=== PATIENT | female | born 1965 | race Caucasian/White ===

== ENCOUNTER → 2017-03-29 | Outpatient (CLI) | payer BC ==
[2017-03-29 13:37] VITALS: BP 161/76; PULSE 80; RESP 16; TEMP 99; BMI 36.0
--- NOTE | 2017-03-29 14:16 | P.HPBAR ---
Bariatric H&P - History & Physicial H&P Date: 03/29/17 History & Physicial: Visit/CC: Band Adj Patient initial contact: Initial weight: 110.762 kg Initial weight in pounds: 244.00 Height: 5 ft 9 in Initial BMI: 36.0 Last weight: Current weight: 110.762 kg Current weight in pounds: 244.00 Current BMI: 36.0 [place] body weight (based on NIH guidelines): 65.771 kg Excess body weight loss: 0.0% The patient is a 51 year-old F who presents for Bariatric Assessment. Patient' s complaints of hunger. She is wishing to have a lap band adjustment. She's not been seen in several years. Her original band was sounded 2007. Past Medical History Past Medical History: Deep Vein Thrombosis (DVT) History of Any Multi-Drug Resistant Organisms: None Reported Past Surgical History: Bariatric Surgery, Cholecystectomy Additional Past Surgical History / Comment(s): lap band 2007 Past Anesthesia/Blood Transfusion Reactions: No Reported Reaction Smoking Status: Former smoker Surgical - Exam Vital Signs Temp Pulse Resp BP 99.0 F 80 16 161/76 03/29/17 13:33 03/29/17 13:33 03/29/17 13:33 03/29/17 13:33 - General well developed, well nourished - Eyes PERRL - ENT normal pinna - Neck no masses - Respiratory normal expansion - Cardiovascular Rhythm: regular - Abdomen Abdomen: soft, non tender Bariatric Assessment & Plan Plan: Patient LAP-BAND was adjusted. She had 1 mL added to her band. She currently is 2.2 mL in the band. She'll follow-up in one month for recheck. Bariatric Checklist Checklist: Plan: Checklist: EGD: 1. Hiatal hernia: 2. H. Pylori: HgbA1c: Vitamin D: Smoking: Former smoker Primary care physician referral: Psychiatry clearance: Cardiology clearance: Sleep study: Diet journal: VTE risk score: VTE risk level: Rehab needs at discharge:
== END ==
LOC: BARWHC3 12:51
PROVIDERS: ATTEND Surgery
DX: Z48.815 Encounter for surgical aftercare following surgery on the digestive system (principal); Z98.84 Bariatric surgery status; F17.200 Nicotine dependence, unspecified, uncomplicated
CPT/HCPCS: 99202

== ENCOUNTER → 2017-04-19 | Outpatient (CLI) | payer BC ==
[2017-04-19 13:18] VITALS: BP 140/85; PULSE 63; TEMP 98.2; BMI 36.6
--- NOTE | 2017-04-19 14:24 | P.HPBAR ---
Bariatric H&P - History & Physicial H&P Date: 04/19/17 History & Physicial: Visit/CC: lap band follow up Patient initial contact: Initial weight: 110.762 kg Initial weight in pounds: 244.19 Height: 5 ft 9 in Initial BMI: 36.0 Last weight: Current weight: 112.536 kg Current weight in pounds: 248.10 Current BMI: 36.6 [place] body weight (based on NIH guidelines): 65.771 kg Excess body weight loss: The patient is a 51 year-old F who presents for Bariatric Assessment. Patient states she feels no restriction. She is concerned that she has lost her fluid. Past Medical History Past Medical History: Deep Vein Thrombosis (DVT) History of Any Multi-Drug Resistant Organisms: None Reported Past Surgical History: Bariatric Surgery, Cholecystectomy Additional Past Surgical History / Comment(s): lap band 2008 Past Anesthesia/Blood Transfusion Reactions: No Reported Reaction Past Psychological History: No Psychological Hx Reported Smoking Status: Former smoker Past Alcohol Use History: None Reported Additional Past Alcohol Use History / Comment(s): quit one month ago Past Drug Use History: None Reported Surgical - Exam Vital Signs Temp Pulse BP 98.2 F 63 140/85 04/19/17 13:12 04/19/17 13:12 04/19/17 13:12 - General well developed, no distress - Eyes PERRL - ENT normal pinna - Neck no masses - Respiratory normal expansion - Cardiovascular Rhythm: regular - Abdomen Abdomen: soft, non tender Bariatric Assessment & Plan Plan: The patient LAP-BAND port was adjusted. She has no fluid in her band. She'll be scheduled for laparoscopic removal and replacement of LAP-BAND port. Bariatric Checklist Checklist: Plan: Checklist: EGD: 1. Hiatal hernia: 2. H. Pylori: HgbA1c: Vitamin D: Smoking: Former smoker Primary care physician referral: dr gomez Psychiatry clearance: Cardiology clearance: Sleep study: Diet journal: VTE risk score: VTE risk level: Rehab needs at discharge:
== END | disposition home or self-care (01) ==
LOC: BARWHC3 13:00
PROVIDERS: ATTEND Surgery
DX: Z48.815 Encounter for surgical aftercare following surgery on the digestive system (principal); Z87.891 Personal history of nicotine dependence; Z98.84 Bariatric surgery status
CPT/HCPCS: 99212

== ENCOUNTER → 2017-05-24 | Outpatient (CLI) | payer BC ==
--- NOTE | 2017-05-24 16:40 | P.HPBAR ---
Bariatric H&P - History & Physicial H&P Date: 05/24/17 History & Physicial: Visit/CC: Patient initial contact: Initial weight: 110.762 kg Initial weight in pounds: Height: Initial BMI: Last weight: Current weight: Current weight in pounds: Current BMI: [place] body weight (based on NIH guidelines): Excess body weight loss: The patient is a 51 year-old F who presents for Bariatric Assessment. Patient presents today for follow-up. She's had some minimal GERD. She had her LAP- BAND port replaced several weeks ago. Past Medical History Past Medical History: Deep Vein Thrombosis (DVT) Additional Past Medical History / Comment(s): SOME ABD PAIN (POSSIBLY FROM LAP BAND SLIPPAGE). History of Any Multi-Drug Resistant Organisms: None Reported Past Surgical History: Bariatric Surgery, Cholecystectomy Additional Past Surgical History / Comment(s): lap band 2008 Past Anesthesia/Blood Transfusion Reactions: No Reported Reaction Smoking Status: Former smoker - Past Family History Mother Family Medical History: No Reported History Surgical - Exam - General well developed, no distress - Eyes PERRL - Respiratory normal expansion - Abdomen Abdomen: soft, non tender Bariatric Assessment & Plan Plan: GERD. The patient's GERD symptoms are minimal she will follow-up in 2-4 weeks. Her Law was not adjusted. Bariatric Checklist Checklist: Plan: Checklist: EGD: 1. Hiatal hernia: 2. H. Pylori: HgbA1c: Vitamin D: Smoking: Former smoker Primary care physician referral: dr gomez Psychiatry clearance: Cardiology clearance: Sleep study: Diet journal: VTE risk score: VTE risk level: Rehab needs at discharge:
== END ==
LOC: BARWHC3 14:13
PROVIDERS: ATTEND Surgery
DX: Z48.815 Encounter for surgical aftercare following surgery on the digestive system (principal); K21.9 Gastro-esophageal reflux disease without esophagitis; Z87.891 Personal history of nicotine dependence
CPT/HCPCS: 99211

== ENCOUNTER → 2017-06-07 | Outpatient (CLI) | payer BC ==
[2017-06-07 15:14] VITALS: BP 141/75; PULSE 83; RESP 16; TEMP 97.9; BMI 38.7
--- NOTE | 2017-06-07 16:22 | P.HPBAR ---
Bariatric H&P - History & Physicial H&P Date: 06/07/17 History & Physicial: Visit/CC: band adj Patient initial contact: Initial weight: 110.762 kg Initial weight in pounds: 244.19 Height: 5 ft 9 in Initial BMI: 36.0 Last weight: Current weight: 119.159 kg Current weight in pounds: 262.70 Current BMI: 38.7 [place] body weight (based on NIH guidelines): 65.771 kg Excess body weight loss: The patient is a 51 year-old F who presents for Bariatric Assessment. Patient presents today for her LAP-BAND follow-up. She had her port recently replaced. She is requesting a fill. Past Medical History Past Medical History: Deep Vein Thrombosis (DVT) Additional Past Medical History / Comment(s): SOME ABD PAIN (POSSIBLY FROM LAP BAND SLIPPAGE). History of Any Multi-Drug Resistant Organisms: None Reported Past Surgical History: Bariatric Surgery, Cholecystectomy Additional Past Surgical History / Comment(s): lap band 2008 Past Anesthesia/Blood Transfusion Reactions: No Reported Reaction Smoking Status: Former smoker - Past Family History Mother Family Medical History: No Reported History Surgical - Exam Vital Signs Temp Pulse Resp BP 97.9 F 83 16 141/75 06/07/17 15:11 06/07/17 15:11 06/07/17 15:11 06/07/17 15:11 - General well developed, no distress - Eyes PERRL - Respiratory normal expansion - Cardiovascular Rhythm: regular - Abdomen Abdomen: soft, non tender Bariatric Assessment & Plan Plan: Status post lap band port replacement. Patient had a fill of her band today. She had 1 mL added. 3 mL's total in her band. She's ill drink water without difficulty. Bariatric Checklist Checklist: Plan: Checklist: EGD: 1. Hiatal hernia: 2. H. Pylori: HgbA1c: Vitamin D: Smoking: Former smoker Primary care physician referral: dr gomez Psychiatry clearance: Cardiology clearance: Sleep study: Diet journal: VTE risk score: VTE risk level: Rehab needs at discharge:
== END ==
LOC: BARWHC3 14:18
PROVIDERS: ATTEND Surgery
DX: Z48.815 Encounter for surgical aftercare following surgery on the digestive system (principal); Z87.891 Personal history of nicotine dependence; Z98.84 Bariatric surgery status
CPT/HCPCS: 99212

== ENCOUNTER → 2017-10-29 | Outpatient (CLI) | payer BC | END | disposition home or self-care (01) | LOC: LABPAT 11:59 | PROVIDERS: ATTEND Orthopaedic Surgery | DX: Z01.812 Encounter for preprocedural laboratory examination (principal); M17.11 Unilateral primary osteoarthritis, right knee | CPT/HCPCS: 87070 ==

== ENCOUNTER 2017-11-08 07:30 | Inpatient (IN) | payer BC ==
[2017-10-27 09:06] VITALS: BMI 37.6
--- NOTE | 2017-11-07 10:25 | HP ---
HISTORY AND PHYSICAL REASON FOR ADMISSION: Surgery scheduled 11/08/2017 Zuleika Leblanc is a 52-year-old patient seen with symptomatic right knee osteoarthritis. Treatment options were discussed. She elected to proceed with right total knee arthroplasty. Consent regarding the procedure was obtained. Medical clearance was provided by Dr. Orozco. PAST MEDICAL HISTORY: Depression, history of DVT. PAST SURGICAL HISTORY: Cholecystectomy. MEDICATIONS: [place], Coumadin. ALLERGIES: IODINE. SOCIAL HISTORY: Patient denies current tobacco use. PHYSICAL EXAMINATION: Evaluation of the right knee range of motion is -2/3 to 115 degrees. There is tenderness along the lateral joint line. There is a positive lateral Catie's. Crepitus is noted along the lateral and patellofemoral compartments with range of motion. There is pain with patellofemoral compression. There is a genu valgum deformity. Ligaments are stable. Hip rotation without pain. Distal neurovascular exam is intact. RADIOGRAPHS: Radiographs of her right knee revealed severe lateral, moderate medial moderate patellofemoral compartment osteoarthritis. IMPRESSION: Right knee osteoarthritis. PLAN: Right total knee arthroplasty. Surgery scheduled for 11/08/2017. MMODL / IJN: [id number] /
[~2017-11-08 07:30] MED LIST: ACETAMINOPHEN TAB 500 MG TAB PO ONE; DEXAMETHASONE SOD PHOSPHATE 10 MG/ML 1 ML VIAL IV ONE; LIDOCAINE 1% 20 ML VIAL (10MG/ML) FOR IV START INTRADERMA PRN; MELOXICAM 7.5 MG TAB PO ONE; MIDAZOLAM 2 MG/2 ML VIAL IV PRN; MORPHINE SULFATE 2 MG/ML SYRINGE IV PRN; ONDANSETRON ODT 4 MG TAB PO ONE; SCOPOLAMINE 1.5MG/72HR PATCH TRANSDERM ONE; TRANEXAMIC ACID 1,000 MG in SODIUM CHLORIDE 0.9% 50 ML IVPB ONE; ceFAZolin IN SWFI 2 GM/20 ML SYRINGE IVP ONE; fentaNYL (PF) 50 MCG/ML 2 ML AMP IV PRN
[2017-11-08] MEDS ORDERED: ONDANSETRON 4 MG/2 ML VIAL ONE (11:04)
[2017-11-08] MEDS: LACTATED RINGERS 1,000 ML IV SCH (11:18)
[2017-11-08] MEDS ORDERED: ROPIVACAINE 1,100 MG, SODIUM CHLORIDE 0.9% 330 ML MISCELLANE PRN ×2 (12:05)
--- NOTE | 2017-11-08 12:08 | P.ONQ ---
Anesthesiology Proc Note - PNB - Peripheral Nerve Block Performed Right Adductor Canal Infusion Time Out Performed: Yes Procedure Start Time: 11:33 Indication: Acute Post-Operative Pain, Analgesia Specifically requested for management of pain by DrNatalie: Garcia Yin Sedation Type: Awake Preparation: Sterile Prep Position: Supine Catheter Depth at Skin (cm): 10 Catheter: Indwelling Needle Types: Other (see comment) (Pajunk) Needle Size: 100mm (4") Needle Gauge: 18 Technique: Ultrasound Injectate: 0.5% Ropivacaine (see comment for volume) (20 cc) Blood Aspirated: No Pain Paresthesia on Injection Noted: No Resistance on Injection: Normal Events: Uneventful and Well Tolerated
[2017-11-08 12:14] LABS: Partial Thromboplastin Time 23.1 sec (22.0-30.0); Prothrombin Time 9.5 sec (9.0-12.0)
[2017-11-08] MEDS ORDERED: TRANEXAMIC ACID 1,000 MG/10 ML VIAL ONE (12:57)
[2017-11-08] MEDS ORDERED: hydrALAZINE HCL 20 MG/ML 1 ML VIAL ONE (12:57)
[2017-11-08] MEDS ORDERED: diphenhydrAMINE 50 MG/ML 1 ML VIAL ONE (12:57)
[2017-11-08] MEDS ORDERED: MEPERIDINE 50 MG/ML SYRINGE ONE (12:57)
[2017-11-08] MEDS ORDERED: SODIUM CHLORIDE 0.9% 100 ML BAG ONE (12:57)
[2017-11-08] MEDS ORDERED: PROPOFOL 10 MG/ML 20 ML VIAL IV ONE (12:57)
[2017-11-08] MEDS ORDERED: fentaNYL (PF) 50 MCG/ML 2 ML AMP ONE (12:57)
[2017-11-08] MEDS ORDERED: MIDAZOLAM 2 MG/2 ML VIAL ONE (12:57)
[2017-11-08] MEDS ORDERED: ROPIVACAINE 246.25 MG, EPINEPHrine 0.5 MG, KETOROLAC 30 MG, cloNIDine HCL/PF 80 MCG, WA... MISCELLANE ONE ×5 (13:02)
[2017-11-08] MEDS ORDERED: ceFAZolin 3,000 MG in SODIUM CHLORIDE 0.9% IRRIGATIO 3,000 ML IRRIGATION ONE (13:47)
[2017-11-08] MEDS ORDERED: LACTATED RINGERS 1,000 ML IV ONE (13:58)
[2017-11-08] MEDS ORDERED: MORPHINE SULFATE 4 MG/0.8 ML SYRINGE (INJ) IVP PRN ×3 (15:32)
[2017-11-08] MEDS ORDERED: NALOXONE 0.4 MG/ML 1 ML VIAL IV PRN (15:32)
[2017-11-08] MEDS ORDERED: hydrOXYzine PAMOATE 25 MG CAP PO PRN (15:32)
[2017-11-08] MEDS ORDERED: HYDROcodone/APAP 7.5-325MG 1 EACH TAB PO PRN (15:32)
[2017-11-08] MEDS ORDERED: ONDANSETRON 4 MG/2 ML VIAL IVP PRN (15:32)
--- NOTE | 2017-11-08 15:32 | P.OP ---
Date of Procedure: 11/08/17 Preoperative Diagnosis: Right knee osteoarthritis Postoperative Diagnosis: Right knee osteoarthritis Procedure(s) Performed: Right total knee arthroplasty Implants: 1. Microport evolution MP femoral component 6 right cemented 2. Microport evolution MP keeled tibial base size 6 right cemented 3. Microport evolution MP CS 6 right 10 mm polyethylene tibial insert 4. Microport all polyethylene patella 35 mm cemented Anesthesia: regional (Adductor canal catheter), local, spinal Surgeon: Garcia Yin Cashier And Salesperson #1: Ben Rhodes Estimated Blood Loss (ml): 50 Pathology: other (Bone) Condition: stable Disposition: PACU Indications for Procedure: 52-year-old patient seen with symptomatic right knee osteoarthritis. After having treatment options discussed, she elected to proceed with total knee arthroplasty Operative Findings: see description of procedure Description of Procedure: Patient was taken to the operative suite after having an adductor canal catheter placed by the department of anesthesia. Patient underwent a spinal anesthetic by the department of anesthesia. Patient was given preoperative IV intake antibiotics and TXA. A well-padded tourniquet was placed about the right lower extremity. The lower extremity was then prepped and draped in the normal sterile orthopedic fashion. The extremity was elevated, a tourniquet was insufflated to 300. A standard anterior incision was made sharply through skin. Dissection was taken down through the subcutaneous soft tissues down to the extensor mechanism. A medial arthrotomy was performed, patella was everted and knee was flexed. There was advanced osteoarthritis noted. A proximal tibial cutting guide was positioned. Proximal tibial cut was made. A distal intramedullary femoral cutting guide was positioned, distal femoral cut made. We placed the appropriate sizing guide and selected the appropriate size. A distal 4-in-1 femoral cutting block was positioned, distal femoral cuts were made. We now placed a trial femoral component into position, along with an appropriate size tibial tray and insert. We now took the knee through range of motion and had full extension good flexion and good overall soft tissue balance noted. The patella was everted and a flush cut made with patellar quad tendon. We templated the patella, appropriate drill holes were made. An appropriate trial patella was positioned, knee was taken through full range of motion with the patella tracking very nicely. The trial patella was removed. Drill holes were made through the femoral component. All trial components were removed after marking off the appropriate rotation of the tibia. Retractors were now positioned along the proximal tibia. An appropriate keel punch was made with the appropriate size tibial guide. At this point appropriate size implants were chosen and opened. The joint was irrigated copiously with pulse lavage mechanical irrigation. The deep soft tissues were infiltrated local analgesic. We mixed antibiotic methylmethacrylate. Once the methyl methacrylate was ready, the tibial component was cemented into place removing any excess methylmethacrylate. The femoral component was cemented into place removing the removing any excess methylmethacrylate. We then inserted the appropriate size polyethylene tibial insert. We made sure that it was locked into position. We took the knee into full extension, and then back in a flexion making sure we had removed any excess methylmethacrylate. The patellar component was then cemented down and secured with clamp. Excess methylmethacrylate removed. We kept the knee in full extension, patellar clamp in position until methylmethacrylate had hardened. Once it had hardened the patellar clamp was removed. The knee was taken through full range of motion. The patella tracked nicely. There was good soft tissue balancing. The tourniquet was now released. Additional hemostasis was achieved via electrocautery. A second gram of TXA was given. The wound was irrigated with pulse lavage mechanical irrigation. The superficial soft tissues were infiltrated local analgesic. The extensor mechanism was repaired with Vicryl. We checked the repair with range of motion and it was stable. The subcutaneous soft tissues were repaired with Vicryl in layers. The skin was approximated with pernio/Dermabond. Sterile dressings were applied followed by loose web roll and Anirudh bandage. The patient was transferred to a bed, and taken to recovery in stable and satisfactory condition. Tye SOLORIO assisted with the procedure.
--- NOTE | 2017-11-08 15:56 | XR ---
EXAMINATION TYPE: XR knee limited RT DATE OF EXAM: 11/08/2017 CLINICAL HISTORY: Right knee pain and arthritis status post total knee replacement. TECHNIQUE: Portable AP and crosstable lateral views of the right knee are obtained immediately po stoperatively. COMPARISON: None FINDINGS: Metallic hardware from total right knee arthroplasty is seen and appears satisfactory in a lignment and position. There is evidence of recent surgery with diffuse subcutaneous gas and soft ti ssue swelling noted. IMPRESSION: METALLIC HARDWARE FROM TOTAL RIGHT KNEE ARTHROPLASTY IS SATISFACTORY IN ALIGNMENT.
[2017-11-08] MEDS: HYDROcodone/APAP 7.5-325MG 1 EACH TAB PO PRN (17:03)
[2017-11-08] MEDS: traMADol 50 MG TAB PO SCH ×2 (17:53→21:51)
[2017-11-08] MEDS ORDERED: WARFARIN 5 MG TAB PO SCH (18:00)
--- NOTE | 2017-11-08 18:04 | P.CONS ---
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 The patient reports adequate pain control, she currently denies any chest pain or shortness of air nausea or vomiting. The patient does report a history of her initial DVT in early 20s and had a recurrent DVT early 2016 and since then she has been on lifelong anticoagulation after having another DVT later last year. Patient is doing well and at present does not have any complaints Review of Systems All other 14 point review of systems negative except per HPI Past Medical History Past Medical History: Blood Disorder, Deep Vein Thrombosis (DVT) Additional Past Medical History / Comment(s): ? unknown clotting disorder; supposed to start Warfarin 11/03/17 per PCp; Hx DVT 08/04 & 03/05; SOME ABD PAIN ( POSSIBLY FROM LAP BAND SLIPPAGE). History of Any Multi-Drug Resistant Organisms: None Reported Past Surgical History: Bariatric Surgery, Cholecystectomy Additional Past Surgical History / Comment(s): lap band 2007; redone 06/04; EGD Past Anesthesia/Blood Transfusion Reactions: No Reported Reaction Past Psychological History: No Psychological Hx Reported Smoking Status: Former smoker Past Alcohol Use History: None Reported Additional Past Alcohol Use History / Comment(s): quit smoking MAR 2017; smoked appor. 30yrs 1ppd Past Drug Use History: None Reported - Past Family History Mother Family Medical History: Diabetes Mellitus Father Family Medical History: Unable to Obtain Medications and Allergies Home Medications Medication Instructions Recorded Confirmed Type Folic Acid 0.4 mg PO DAILY 04/19/17 11/08/17 History Warfarin [Coumadin] 2.5 mg PO DAILY 11/02/17 11/08/17 History HYDROcodone/APAP 7.5-325MG [[place] 1 tab PO Q4H PRN 11/08/17 11/08/17 History 7.5] Allergies Allergy/AdvReac Type Severity Reaction Status Date / Time iodine Allergy Swelling Verified 11/08/17 11:09 Physical Exam Vitals: Vital Signs Temp Pulse Resp BP Pulse Ox 11/08/17 16:59 98 11/08/17 16:15 90 16 18/60 95 11/08/17 16:00 86 16 118/59 95 11/08/17 15:45 88 18 117/58 95 11/08/17 15:30 88 20 115/53 96 11/08/17 12:00 77 16 100 11/08/17 11:08 98.6 F 87 16 143/64 98 Intake and Output 11/08/17 11/08/17 11/08/17 06:59 14:59 22:59 Intake Total 1801 50 Output Total 50 Balance 1801 0 Intake: IV 1801 50 Output: Estimated Blood Loss 50 Other: Weight 115.666 kg Constitutional: No acute distress, conversant, pleasant Eyes: Anicteric sclerae, moist conjunctiva, no lid-lag, PERRLA ENMT: NC/AT,Oropharynx clear, no erythema, exudates Neck:Supple, FROM, no masses, or JVD, No carotid bruits; No thyromegaly Lungs: Clear to auscultation, Clear to percussion, Normal respiratory effort, no accessory muscle use Cardiovascular: Heart regular in rate and rhythm, No murmurs, gallops, or rubs no peripheral edema Abdominal: Soft Nontender, nom distended, no guarding, no rebound or rigidity, Normoactive bowel sounds No hepatomegaly, No splenomegaly, No palpable mass No abdominal wall hernia noted Skin: Normal temperature, tone, texture, turgor, No induration No subcutaneous nodules, No rash, lesions, No ulcers Extremities:No digital cyanosis No clubbing, Pedal pulses intact and symmetrical Radial pulses intact and symmetrical Normal gait and station, No calf tenderness Psychiatric: Alert and oriented to person, place and time, Appropriate affect Intact judgement Neuro: Muscles Strength 5/5 in all 4 extremities, Sensation to light touch grossly present throughout, Cranial nerves II-XII grossly intact. No focal sensory deficits Assessment and Plan (1) Hx of venous thromboembolic disease Current Visit: Yes Status: Acute Code(s): Z86.718 - PERSONAL HISTORY OF OTHER VENOUS THROMBOSIS AND EMBOLISM SNOMED Code(s): 219859141 (2) Osteoarthritis of right knee Current Visit: Yes Status: Acute Code(s): M17.11 - UNILATERAL PRIMARY OSTEOARTHRITIS, RIGHT KNEE SNOMED Code(s): 578263874887634 (3) Status post arthroscopy of right knee Current Visit: Yes Status: Acute Code(s): Z98.890 - OTHER SPECIFIED POSTPROCEDURAL STATES SNOMED Code(s): 355703774 Plan: The patient is admitted to orthopedic service service Dr. Yin service and is postop day #0 after having a right total knee arthroplasty secondary to severe right knee osteoarthritis will defer to primary team regarding pain management the patient scheduled to have physical and occupational therapy prior to discharge. Given the patient's history of recurrent thromboembolic disease and DVTs recommend restarting her Coumadin later today as her PT/INR 9.5 /1 respectively. Otherwise patient is medically stable continue to monitor her clinical course. Appreciated depression to be involved in an ongoing care of this patient
[2017-11-08] MEDS ORDERED: SENNOSIDES-DOCUSATE SODIUM 1 EACH TAB PO SCH (21:00)
[2017-11-08] MEDS: ceFAZolin IN SWFI 2 GM/20 ML SYRINGE IVP SCH (21:49)
[2017-11-08] MEDS: ENOXAPARIN 30 MG/0.3 ML SYRINGE SQ SCH (21:49)
[2017-11-08 23:59] VITALS: RESP 16
[2017-11-09] MEDS: HYDROcodone/APAP 7.5-325MG 1 EACH TAB PO PRN ×3 (02:06→14:00)
[2017-11-09] MEDS: ceFAZolin IN SWFI 2 GM/20 ML SYRINGE IVP SCH (05:38)
[2017-11-09] MEDS: LACTATED RINGERS 1,000 ML IV SCH (05:39)
--- NOTE | 2017-11-09 07:04 | P.PN ---
Progress Note - Text Progress Note Date: 11/09/17 . Postoperative day # 1 status post total knee arthroplasty, under spinal anesthesia, and adductor canal catheter placed for postoperative analgesia, currently at ropivacaine 0.2% 8 mL per hour and continuous infusion, visual analogue scale is 3/10, patient using oral pain medication for breakthrough pain. Assessment and plan= Acute postoperative pain, adductor canal catheter for pain control, pain is well controlled we'll continue the same management.
[2017-11-09 07:44] LABS: Prothrombin Time 10.1 sec (9.0-12.0)
[2017-11-09 08:00] LABS: Basophils % (A) 0 %; Eosinophils # (A) 0.1 k/uL (0-0.7); Eosinophils % (A) 1 %; HCT 37.4 % (34.0-46.0); Lymphocytes # (A) 2.1 k/uL (1.0-4.8); Lymphocytes % (A) 20 %; MCH 29.8 pg (25.0-35.0); MCHC 32.1 g/dL (31.0-37.0); MCV 92.8 fL (80.0-100.0); Mean Platelet Volume 7.6; Monocytes # (A) 0.7 k/uL (0-1.0); Monocytes % (A) 6 %; Neutrophils # (A) 7.8 k/uL (1.3-7.7); Neutrophils % (A) 72 %; Platelet Count 259 k/uL (150-450); RBC 4.03 m/uL (3.80-5.40); RDW 12.3 % (11.5-15.5); WBC 10.8 k/uL (3.8-10.6)
[2017-11-09 08:04] VITALS: BP 134/79; PULSE 66; TEMP 97.9
[2017-11-09] MEDS: ENOXAPARIN 30 MG/0.3 ML SYRINGE SQ SCH (08:11)
[2017-11-09] MEDS: traMADol 50 MG TAB PO SCH ×2 (08:12→13:30)
[2017-11-09] MEDS ORDERED: FAMOTIDINE 20 MG TAB PO SCH (09:00)
[2017-11-09] MEDS ORDERED: MELOXICAM 7.5 MG TAB PO SCH (09:00)
--- NOTE | 2017-11-09 13:17 | P.PN ---
Subjective Progress Note Date: 11/09/17 Principal diagnosis: Status post right total knee arthroplasty Patient seen today resting in her hospital bed, she is utilizing the CPM. Her was present at bedside. She's ambulated well with physical therapy, she is urinating on her own. Her pain is well-controlled at this time. She denies any headaches, lightheadedness, chest pain or shortness of breath. Objective - Vital Signs Vital signs: Vital Signs Temp 97.9 F 11/09/17 07:32 Pulse 66 11/09/17 07:32 Resp 16 11/09/17 07:32 BP 134/79 11/09/17 07:32 Pulse Ox 100 11/09/17 07:32 Intake & Output 11/08/17 11/09/17 11/09/17 18:59 06:59 18:59 Intake Total 1851 240 Output Total 50 300 Balance 1801 -60 Weight 115.666 kg Intake: IV 1851 Oral 240 Output: Urine 300 Estimated Blood Loss 50 Other: Voiding Method Toilet # Voids 2 - Exam Right lower extremity: Incision is clean, dry, and intact. The prineo tape is in good condition. There is minimal soft tissue swelling and ecchymosis surrounding the medial and lateral aspects of the incision. Calf is soft, no tenderness with palpation. Plantar flexion, dorsiflexion, EHL, FHL are intact. Sensory exam to light touch throughout the extremity is intact, dorsal pedis pulses 2+. - Labs CBC & Chem 7: 11/09/17 06:35 Labs: Abnormal Lab Results - Last 24 Hours (Table) 11/09/17 Range/Units 06:35 WBC 10.8 H (3.8-10.6) k/uL Neutrophils # 7.8 H (1.3-7.7) k/uL Assessment and Plan Plan: Assessment: 1. Postop day 1 status post right total knee arthroplasty Plan: Pain control, we'll discharge home on oral medication She will resume her normal anticoagulation, she will utilize Lovenox until INR is therapeutic. Recommend 2-3 times a week to have her INR checked Wound care instructions were discussed Home physical therapy and nursing after discharge Utilize home CPM after discharge Medical recommendations Patient will be discharged home today Time with Patient: Less than 30
--- NOTE | 2017-11-09 13:24 | P.DS ---
Providers Date of admission: 11/08/17 10:55 Expected date of discharge: 11/09/17 Attending physician: Garcia Yin Consults: 11/08/17 15:32 Consult Physician Routine Consulting Provider: Johann Allred Consult Reason/Comments: Medical management Do you want consulting provider notified?: Yes [facility] Course: Date of admission: 11/08/2017 Date of discharge: 11/09/2017 Admission diagnosis: Status post right total knee arthroplasty Discharge diagnosis: Same Attending physician: Dr. Yin Surgical procedures: Right total knee arthroplasty Brief history: Patient is a 52-year-old female with a history of progressive primary right knee osteoarthritis. At this point patient has failed conservative treatment measures and has opted to proceed with a elective right total knee arthroplasty. Hospital course: Details of patient's surgery can be found in operative report. Patient tolerated the procedure well and was subsequently transported to orthopedic floor. Patient's orthopeidc and medical care was provided daily. Patient had daily laboratory tests performed for evaluation of overall blood counts. Patient had daily physical therapy to include strengthening range of motion as well as education with walker ambulation. Patient had daily CPM usage as part of their physical therapy program. Patient was treated with Lovenox and Coumadin for their postoperative DVT prophylaxis during their inpatient stay. Patient was noted to have a relatively uneventful postoperative course. Patient reported satisfactory pain control with oral pain medications by postoperative day 0. Patient showed satisfactory progress with physical therapy. Patient moved steadily through the program and had no difficulty meeting the goals by postoperative day 1. Given patient's otherwise satisfactory course and having met physical therapy goals, plan is to discharge patient home on postoperative day 1. Discharge condition/disposition: Patient will be discharged home in stable condition. Discharge medications: Instructions are given on resumption of patient's normal daily medications per primary care recommendation, in addition patient will be prescribed [place] 7.5 mg/325 mg, tramadol 50 mg, Colace 100 mg. Discharge instructions: 1. Wound care and infection precautions, keep incision dry and covered while showering, no lotions, creams, moisturizers. No soaking, tubs, pools, hottubs. Do not scrub over the incision. 2. Weight-bear as tolerated with walker / cane until follow-up. 3. Ice and elevate when necessary. Do not exceed 20 minutes per hour with ice pack. 4. Utilize compression sleeve until seen at first follow up appointment. 5. Visiting nursing care. 6. Home physical therapy including home CPM. 7. Pain meds and anticoagulants per prescription. 8. Pain medication has potential to cause constipation. Increase oral fluid and fiber intake. Contact primary care provider if you have not had a bowel movement within 48 hours after discharge 9. No anti-inflammatory medication until discussed at first post operative visit, this including Motrin, Aleve, Mobic, Diclofenac. 10. Follow up in office at 2 weeks postop with Tye Rhodes PA-C 11. Follow up with your primary care doctor 7-10 days after discharge. 12. Contact [facility] with any questions, . Procedures: Right total knee arthroplasty Patient Condition at Discharge: Good Plan - Discharge Summary Discharge Rx Participant: Yes New Discharge Prescriptions: New Docusate [Colace] 100 mg PO DAILY #30 capsule HYDROcodone/APAP 7.5-325MG [[place] 7.5] 1 - 2 each PO Q6HR PRN #60 tab PRN Reason: Pain traMADol HCl [Ultram] 50 mg PO Q6H PRN #40 tab PRN Reason: Pain No Action Folic Acid 0.4 mg PO DAILY Warfarin [Coumadin] 2.5 mg PO DAILY HYDROcodone/APAP 7.5-325MG [[place] 7.5] 1 tab PO Q4H PRN PRN Reason: Pain Discharge Medication List Folic Acid 0.4 mg PO DAILY 04/19/17 [History] Warfarin [Coumadin] 2.5 mg PO DAILY 11/02/17 [History] Docusate [Colace] 100 mg PO DAILY #30 capsule 11/09/17 [Rx] HYDROcodone/APAP 7.5-325MG [[place] 7.5] 1 - 2 each PO Q6HR PRN #60 tab 11/09/17 [ Rx] traMADol HCl [Ultram] 50 mg PO Q6H PRN #40 tab 11/09/17 [Rx] Follow up Appointment(s)/Referral(s): [facility], [NON-STAFF] - Ben Rhodes, MIGUEL [PHYSICIAN COMMERCIAL ACCOUNTANT] - 11/24/17 2:50 pm Activity/Diet/Wound Care/Special Instructions: [facility] -[phone] - Will deliver to bedside before discharge. Orthopedic Discharge Instructions: 1. Wound care and infection precautions, keep incision dry and covered while showering, no lotions, creams, moisturizers. No soaking, pools, hot tubs. Do not scrub over incision. 2. Weight-bear as tolerated with walker / cane until follow-up. 3. Ice and elevate when necessary. Do not exceed 20 minutes per hour with ice pack. 4. Utilize compression sleeve until seen at first follow up appointment. 5. Visiting nursing care. 6. Home physical therapy including home CPM. 7. Pain meds and anticoagulants per prescription. 8. Pain medication has potential to cause constipation. Increase oral fluid and fiber intake. Contact primary care provider if you have not had a bowel movement within 48 hours after discharge. 9. No anti-inflammatory medication until discussed at first post operative visit, this including Motrin, Aleve, Mobic, Diclofenac. 10. Follow up in office at 2 weeks postop with Tye Rhodes PA-C 11. Follow up with your primary care doctor 7-10 days after discharge. 12. Contact [facility] with any questions, . Discharge Disposition: HOME WITH HOME HEALTH SERVICES
--- NOTE | 2017-11-09 14:41 | P.PN ---
Subjective Progress Note Date: 11/09/17 Patient doing well up sitting in the chair, has been ambulatory with walker, only mentions pain is 5 out of 10. Excited to go home with [place] Objective - Vital Signs Vital signs: Vital Signs Temp 97.9 F 11/09/17 07:32 Pulse 66 11/09/17 07:32 Resp 16 11/09/17 07:32 BP 134/79 11/09/17 07:32 Pulse Ox 100 11/09/17 07:32 Intake & Output 11/08/17 11/09/17 11/09/17 18:59 06:59 18:59 Intake Total 1851 240 Output Total 50 300 Balance 1801 -60 Weight 115.666 kg Intake: IV 1851 Oral 240 Output: Urine 300 Estimated Blood Loss 50 Other: Voiding Method Toilet # Voids 2 2 - Exam Constitutional: No acute distress, conversant, pleasant Eyes: Anicteric sclerae, moist conjunctiva, no lid-lag, PERRLA ENMT: NC/AT,Oropharynx clear, no erythema, exudates Neck:Supple, FROM, no masses, or JVD, No carotid bruits; No thyromegaly Lungs: Clear to auscultation, Clear to percussion, Normal respiratory effort, no accessory muscle use Cardiovascular: Heart regular in rate and rhythm, No murmurs, gallops, or rubs no peripheral edema Abdominal: Soft Nontender, nom distended, no guarding, no rebound or rigidity, Normoactive bowel sounds No hepatomegaly, No splenomegaly, No palpable mass No abdominal wall hernia noted Skin: Normal temperature, tone, texture, turgor, No induration No subcutaneous nodules, No rash, lesions, No ulcers Extremities: Incision is clean dry and intact tape in good position, minimal soft tissue swelling and ecchymosis surrounding the medial and lateral aspects of the incision, the soft nontender tenderness with palpation plantar and dorsiflexion are intact, +2 Dp/PT pulses bilaterally Psychiatric: Alert and oriented to person, place and time, Appropriate affect Intact judgement Neuro: Muscles Strength 5/5 in all 4 extremities, Sensation to light touch grossly present throughout, Cranial nerves II-XII grossly intact. No focal sensory deficits - Labs CBC & Chem 7: 11/09/17 06:35 Labs: Abnormal Lab Results - Last 24 Hours (Table) 04/24/18 Range/Units 06:35 WBC 10.8 H (3.8-10.6) k/uL Neutrophils # 7.8 H (1.3-7.7) k/uL Assessment and Plan (1) Hx of venous thromboembolic disease Narrative/Plan: * Plan to continue anticoagulation with Coumadin with the heparin bridging at home * INR currently still subtherapeutic Status: Acute Code(s): Z86.718 - PERSONAL HISTORY OF OTHER VENOUS THROMBOSIS AND EMBOLISM SNOMED Code(s): 109759142 (2) Osteoarthritis of right knee Status: Acute Code(s): M17.11 - UNILATERAL PRIMARY OSTEOARTHRITIS, RIGHT KNEE SNOMED Code(s): 074802698919543 (3) Status post arthroscopy of right knee Status: Acute Code(s): Z98.890 - OTHER SPECIFIED POSTPROCEDURAL STATES SNOMED Code(s): 514572988 Plan: * Patient stable for discharge continue anticoagulation
[2017-11-09] MEDS ORDERED: WARFARIN 5 MG TAB PO ONE (18:00)
== END 2017-11-09 14:10 | disposition home health service (06) | DRG 470 ==
LOC: 2ORMAIN 10:55 → 3SUR 15:30
PROVIDERS: ADMIT Orthopaedic Surgery; ATTEND Orthopaedic Surgery
PROC: 0SRC0J9 Replacement of Right Knee Joint with Synthetic Substitute, Cemented, Open Approach (ICD-10-PCS; principal; 2017-11-08 13:00)
DX: M17.11 Unilateral primary osteoarthritis, right knee (principal); D68.59 Other primary thrombophilia; F32.9 Major depressive disorder, single episode, unspecified; E66.9 Obesity, unspecified; Z79.01 Long term (current) use of anticoagulants; Z83.3 Family history of diabetes mellitus; Z86.718 Personal history of other venous thrombosis and embolism; Z98.84 Bariatric surgery status; Z90.49 Acquired absence of other specified parts of digestive tract; Z87.891 Personal history of nicotine dependence; Z79.899 Other long term (current) drug therapy; Z88.8 Allergy status to other drugs, medicaments and biological substances; Z68.37 Body mass index [BMI] 37.0-37.9, adult
CPT/HCPCS: 85025; 85610; 85730; 88300; 94760

== ENCOUNTER → 2018-09-05 | Outpatient (CLI) | payer BC ==
[2018-09-05 15:48] VITALS: BP 141/87; PULSE 80; RESP 16; TEMP 97.5; BMI 40.4
--- NOTE | 2018-09-12 16:02 | P.HPBAR ---
Bariatric H&P - History & Physicial H&P Date: 09/05/18 History & Physicial: Visit/CC: band not working properly Patient initial contact: Initial weight: 110.762 kg Initial weight in pounds: 244.19 Height: 5 ft 9 in Initial BMI: 36.0 Last weight: Current weight: 124.284 kg Current weight in pounds: 274.00 Current BMI: 40.4 [place] body weight (based on NIH guidelines): 65.771 kg Excess body weight loss: The patient is a 53 year-old F who presents for Bariatric Assessment. Patient presents today for lab band follow up. She states she has lost restriction. Past Medical History Past Medical History: Deep Vein Thrombosis (DVT) Additional Past Medical History / Comment(s): SOME ABD PAIN (POSSIBLY FROM LAP BAND SLIPPAGE). History of Any Multi-Drug Resistant Organisms: None Reported Past Surgical History: Bariatric Surgery, Cholecystectomy Additional Past Surgical History / Comment(s): lap band 2007; redone 06/04; EGD Past Anesthesia/Blood Transfusion Reactions: No Reported Reaction Past Psychological History: No Psychological Hx Reported Smoking Status: Former smoker Past Alcohol Use History: None Reported Additional Past Alcohol Use History / Comment(s): quit smoking MAR 2017; smoked appor. 30yrs 1ppd Past Drug Use History: None Reported - Past Family History Mother Family Medical History: Diabetes Mellitus Father Family Medical History: Unable to Obtain Surgical - Exam Vital Signs Temp Pulse Resp BP 97.5 F L 80 16 141/87 09/05/18 15:44 09/05/18 15:44 09/05/18 15:44 09/05/18 15:44 - General well developed, well nourished, no distress - Eyes PERRL - ENT normal pinna - Neck no masses - Respiratory normal expansion - Cardiovascular Rhythm: regular - Abdomen Abdomen: soft, non tender Bariatric Assessment & Plan Plan: Patient's lap band was adjusted. LAP-BAND port is malfunction. She'll need replacement of her LAP-BAND port. Patient was scheduled for laparoscopic placement of LAP-BAND port in the next week or 2. Bariatric Checklist Checklist: Plan: Checklist: EGD: 1. Hiatal hernia: 2. H. Pylori: HgbA1c: Vitamin D: Smoking: Former smoker Primary care physician referral: dr Keagan Avalos ([facility]) Psychiatry clearance: Cardiology clearance: Sleep study: Diet journal: VTE risk score: VTE risk level: Rehab needs at discharge:
== END | disposition home or self-care (01) ==
LOC: BARWHC3 14:50
PROVIDERS: ATTEND Surgery
DX: K95.09 Other complications of gastric band procedure (principal); E66.01 Morbid (severe) obesity due to excess calories; Z98.84 Bariatric surgery status; Z90.49 Acquired absence of other specified parts of digestive tract; Z87.891 Personal history of nicotine dependence; Z68.41 Body mass index [BMI] 40.0-44.9, adult
CPT/HCPCS: 99212

== ENCOUNTER → 2018-09-16 | Outpatient (CLI) | payer BC ==
[2018-09-16 08:08] LABS: Basophils # (A) 0.1 k/uL (0-0.2); Basophils % (A) 1 %; Eosinophils # (A) 0.3 k/uL (0-0.7); Eosinophils % (A) 4 %; HCT 44.1 % (34.0-46.0); HGB 13.9 gm/dL (11.4-16.0); Lymphocytes # (A) 2.1 k/uL (1.0-4.8); Lymphocytes % (A) 24 %; MCH 29.8 pg (25.0-35.0); MCHC 31.5 g/dL (31.0-37.0); MCV 94.4 fL (80.0-100.0); Mean Platelet Volume 6.7; Monocytes # (A) 0.3 k/uL (0-1.0); Monocytes % (A) 4 %; Neutrophils # (A) 5.8 k/uL (1.3-7.7); Neutrophils % (A) 66 %; Platelet Count 265 k/uL (150-450); RBC 4.67 m/uL (3.80-5.40); WBC 8.8 k/uL (3.8-10.6)
[2018-09-16 08:37] LABS: ALT 27 U/L (9-52); AST 19 U/L (14-36); Albumin 3.7 g/dL (3.5-5.0); Alkaline Phosphatase 93 U/L (38-126); Anion Gap 4 mmol/L; Blood Urea Nitrogen 14 mg/dL (7-17); Calcium 9.2 mg/dL (8.4-10.2); Carbon Dioxide 28 mmol/L (22-30); Chloride 109 mmol/L (98-107); Glucose 98 mg/dL (74-99); Potassium 4.6 mmol/L (3.5-5.1); Sodium 141 mmol/L (137-145); Total Bilirubin 0.6 mg/dL (0.2-1.3); Total Protein 7.2 g/dL (6.3-8.2)
== END ==
LOC: LABPAT 07:09
PROVIDERS: ATTEND Surgery
DX: Z01.812 Encounter for preprocedural laboratory examination (principal)
CPT/HCPCS: 36415; 80053; 85025; 93005

== ENCOUNTER 2018-09-23 07:39 | Day surgery (SDC) | payer BC ==
[2018-09-14 15:37] VITALS: BMI 40.4
[~2018-09-23 07:39] MED LIST changes: -ACETAMINOPHEN TAB 500 MG TAB PO ONE; -DEXAMETHASONE SOD PHOSPHATE 10 MG/ML 1 ML VIAL IV ONE; +LACTATED RINGERS 1,000 ML IV SCH; -LIDOCAINE 1% 20 ML VIAL (10MG/ML) FOR IV START INTRADERMA PRN; -MELOXICAM 7.5 MG TAB PO ONE; -MIDAZOLAM 2 MG/2 ML VIAL IV PRN; -MORPHINE SULFATE 2 MG/ML SYRINGE IV PRN; -ONDANSETRON ODT 4 MG TAB PO ONE; -SCOPOLAMINE 1.5MG/72HR PATCH TRANSDERM ONE; -TRANEXAMIC ACID 1,000 MG in SODIUM CHLORIDE 0.9% 50 ML IVPB ONE; +ceFAZolin 3 GM in SODIUM CHLORIDE 0.9% 100 ML IVPB ONE; -ceFAZolin IN SWFI 2 GM/20 ML SYRINGE IVP ONE; -fentaNYL (PF) 50 MCG/ML 2 ML AMP IV PRN
[2018-09-23] MEDS ORDERED: LIDOCAINE 1% 20 ML VIAL (10MG/ML) FOR IV START INTRADERMA ONE (08:28)
[2018-09-23] MEDS ORDERED: ONDANSETRON 4 MG/2 ML VIAL IVP ONE (08:30)
[2018-09-23] MEDS ORDERED: DEXAMETHASONE SOD PHOSPHATE 10 MG/ML 1 ML VIAL IV ONE (08:30)
--- NOTE | 2018-09-23 08:47 | P.GSHP ---
History of Present Illness H&P Date: 09/23/18 Chief Complaint: LAP-BAND port malfunction This a 53-year-old female who presents today for laparoscopic removal and replacement of LAP-BAND port. Patient LAP-BAND port is not holding restriction. Past Medical History Past Medical History: Deep Vein Thrombosis (DVT) Additional Past Medical History / Comment(s): "Quite a few DVT's in last 2 yrs." History of Any Multi-Drug Resistant Organisms: None Reported Past Surgical History: Bariatric Surgery, Cholecystectomy, Joint Replacement Additional Past Surgical History / Comment(s): Lap band 2007, redone 06/04, EGD, right knee replacement. Past Anesthesia/Blood Transfusion Reactions: No Reported Reaction Past Psychological History: No Psychological Hx Reported Smoking Status: Former smoker Past Alcohol Use History: None Reported Additional Past Alcohol Use History / Comment(s): Quit smoking Mar 2017, smoked approx. 30yrs, 1PPD. Past Drug Use History: None Reported - Past Family History Mother Family Medical History: Diabetes Mellitus Father Family Medical History: Unable to Obtain Sister(s) Family Medical History: Cancer Medications and Allergies Home Medications Medication Instructions Recorded Confirmed Type Folic Acid 0.4 mg PO DAILY 04/19/17 09/23/18 History Warfarin [Coumadin] 2.5 mg PO DAILY 11/02/17 09/23/18 History Docusate [Colace] 100 mg PO DAILY #30 capsule 11/09/17 09/23/18 Rx Cholecalciferol [Vitamin D3] 1,000 unit PO DAILY 09/14/18 09/23/18 History Allergies Allergy/AdvReac Type Severity Reaction Status Date / Time iodine Allergy Swelling Verified 09/23/18 08:04 Surgical - Exam Vital Signs Temp Pulse Resp BP Pulse Ox 97.6 F 74 15 140/67 97 09/23/18 08:09 09/23/18 08:09 09/23/18 08:09 09/23/18 08:09 09/23/18 08:09 - General well developed, well nourished, no distress - Eyes PERRL - ENT normal pinna - Neck no masses - Respiratory normal expansion - Cardiovascular Rhythm: regular - Abdomen Abdomen: soft, non tender Assessment and Plan Assessment: LAP-BAND port malfunction. We'll perform laparoscopic removal and replacement of LAP-BAND port.
[2018-09-23] MEDS ORDERED: BUPIVACAIN-EPI 0.5%-1:200,000 30 ML VIAL SQ ONE (08:55)
[2018-09-23] MEDS ORDERED: SUCCINYLCHOLINE CHLORIDE 100 MG/5 ML SYR IV ONE (09:08)
[2018-09-23] MEDS ORDERED: MIDAZOLAM 2 MG/2 ML VIAL ONE (09:08)
[2018-09-23] MEDS ORDERED: fentaNYL (PF) 50 MCG/ML 2 ML AMP ONE (09:08)
[2018-09-23] MEDS ORDERED: LIDOCAINE 1% INJ 10MG/ML (20 ML MDV) ONE (09:08)
[2018-09-23] MEDS ORDERED: GLYCOPYRROLATE 0.2 MG/ML 2 ML VIAL ONE (09:08)
[2018-09-23] MEDS ORDERED: PROPOFOL 10 MG/ML 20 ML VIAL IV ONE (09:08)
[2018-09-23] MEDS ORDERED: NEOSTIGMINE 1 MG/ML 10 ML VIAL ONE (09:08)
[2018-09-23 10:16] VITALS: RESP 16; TEMP 97.9
[2018-09-23] MEDS: HYDROmorphone 1 MG/ML 1 ML SYRINGE IVP ONE ×2 (10:23→10:31)
[2018-09-23] MEDS ORDERED: LACTATED RINGERS 1,000 ML IV ONE (10:45)
--- NOTE | 2018-09-23 10:48 | P.OP ---
Date of Procedure: 09/23/18 Preoperative Diagnosis: LAP-BAND port malfunction Postoperative Diagnosis: LAP-BAND port malfunction Procedure(s) Performed: Laparoscopic replacement of LAP-BAND port Anesthesia: JESSICA Surgeon: Joel Wu Estimated Blood Loss (ml): 10 Pathology: none sent Condition: stable Disposition: PACU Description of Procedure: the patient's placed on the operative table in the supine position. She received IV sedation. Her abdomen was prepped and draped in sterile fashion. She then received general anesthesia. The LAP-BAND port was located in the right lower quadrant. Skin was incised and then using blunt and sharp dissection with cautery the LAP-BAND port was dissected free from the fascia. The PEG tube appeared to be coiled. At this point the PEG tube was then cut and the LAP-BAND port was withdrawn. Next using a 5 mm optical trocar under direct visualization the peritoneal cavity is entered and then the abdomen is insufflated after adequate insufflation the laparoscope was placed into the pelvic cavity. Next a skin incision was made in the left upper quadrant and then using a 10 mm trocar the peritoneal cavity is entered. The PEG tube was then brought out through the 10 mm trocar site. The trochars withdrawn. The fascia at the 10 mm trocar site was then exposed is electro-cautery. LAP-BAND port was then connected to the PEG tube and then this was secured to the fascia using 0 Nurolon suture. The LAP-BAND port was flushed with 3 mL of normal saline. The skin was closed interrupted 3-0 Monocryl suture. Dermabond dressings was applied. Patient top procedure well and was sent to recovery in stable condition.
[2018-09-23] MEDS ORDERED: HYDROcodone/APAP 7.5-325MG 1 EACH TAB PO ONE (12:21)
[2018-09-23 13:09] VITALS: BP 120/72; PULSE 60
== END 2018-09-23 13:12 | disposition home or self-care (01) ==
LOC: OR 07:39
PROVIDERS: ATTEND Surgery
DX: K95.09 Other complications of gastric band procedure (principal); Z86.718 Personal history of other venous thrombosis and embolism; Z87.891 Personal history of nicotine dependence; Z79.01 Long term (current) use of anticoagulants; Z79.899 Other long term (current) drug therapy; Z91.048 Other nonmedicinal substance allergy status
CPT/HCPCS: 43888; J2250; J1100; J2710; J0690; J2405; J2001; J3010; J1170; J0330; J2704

== ENCOUNTER → 2018-09-26 | Outpatient (CLI) | payer BC ==
[2018-09-26 11:07] VITALS: BP 164/93; PULSE 112; RESP 18; TEMP 97.7; BMI 38.2
--- NOTE | 2018-09-26 12:50 | P.HPBAR ---
Bariatric H&P - History & Physicial H&P Date: 09/26/18 History & Physicial: Visit/CC: lap band adjustment Patient initial contact: Initial weight: 110.762 kg Initial weight in pounds: 244.19 Height: 5 ft 9 in Initial BMI: 36.0 Last weight: Current weight: 117.662 kg Current weight in pounds: 259.40 Current BMI: 38.2 [place] body weight (based on NIH guidelines): 65.771 kg Excess body weight loss: The patient is a 53 year-old F who presents for Bariatric Assessment. Patient has complaints of dysphagia. She had a recent LAP-BAND port replacement. Past Medical History Past Medical History: Deep Vein Thrombosis (DVT) Additional Past Medical History / Comment(s): "Quite a few DVT's in last 2 yrs." History of Any Multi-Drug Resistant Organisms: None Reported Past Surgical History: Bariatric Surgery, Cholecystectomy, Joint Replacement Additional Past Surgical History / Comment(s): Lap band 2007, redone 06/04, EGD, right knee replacement. Past Anesthesia/Blood Transfusion Reactions: No Reported Reaction Smoking Status: Former smoker - Past Family History Mother Family Medical History: Diabetes Mellitus Father Family Medical History: Unable to Obtain Sister(s) Family Medical History: Cancer Surgical - Exam Vital Signs Temp Pulse Resp BP Pulse Ox 97.7 F 112 H 18 164/93 97 09/26/18 11:05 09/26/18 11:05 09/26/18 11:05 09/26/18 11:05 09/26/18 11:05 - General well developed, well nourished, no distress - Eyes PERRL - ENT normal pinna - Neck no masses - Abdomen Incision site is clean dry and intact Abdomen: soft, non tender Bariatric Assessment & Plan Plan: Dysphagia, LAP-BAND port was emptied. 3 mL was removed from the LAP-BAND port. She'll follow-up in 2 weeks. Bariatric Checklist Checklist: Plan: Checklist: EGD: 1. Hiatal hernia: 2. H. Pylori: HgbA1c: Vitamin D: Smoking: Former smoker Primary care physician referral: dr Keagan Avalos ([facility]) Psychiatry clearance: Cardiology clearance: Sleep study: Diet journal: VTE risk score: VTE risk level: Rehab needs at discharge:
== END ==
LOC: BARWHC3 10:53
PROVIDERS: ATTEND Surgery
DX: Z48.815 Encounter for surgical aftercare following surgery on the digestive system (principal); R13.10 Dysphagia, unspecified; Z98.84 Bariatric surgery status; Z87.891 Personal history of nicotine dependence
CPT/HCPCS: 99212

== ENCOUNTER → 2018-10-03 | Outpatient (CLI) | payer BC ==
[2018-10-03 15:14] VITALS: BP 160/71; PULSE 87; RESP 16; TEMP 97.6; BMI 41.0
--- NOTE | 2018-10-03 16:17 | P.HPBAR ---
Bariatric H&P - History & Physicial H&P Date: 10/03/18 History & Physicial: Visit/CC: band adj Patient initial contact: Initial weight: 110.762 kg Initial weight in pounds: 244.19 Height: 5 ft 9 in Initial BMI: 36.0 Last weight: Current weight: 126.099 kg Current weight in pounds: 278.00 Current BMI: 41.0 [place] body weight (based on NIH guidelines): 65.771 kg Excess body weight loss: The patient is a 53 year-old F who presents for Bariatric Assessment. Patient presents today for bariatric follow-up. She had her port replaced 2 weeks ago. Her band was emptied and she feels some hunger.. Patient also has some complaints of arthritis of her lower extremities. Past Medical History Past Medical History: Deep Vein Thrombosis (DVT) Additional Past Medical History / Comment(s): "Quite a few DVT's in last 2 yrs." History of Any Multi-Drug Resistant Organisms: None Reported Past Surgical History: Bariatric Surgery, Cholecystectomy, Joint Replacement Additional Past Surgical History / Comment(s): Lap band 2007, redone 06/04, EGD, right knee replacement. Past Anesthesia/Blood Transfusion Reactions: No Reported Reaction Past Psychological History: No Psychological Hx Reported Smoking Status: Former smoker Past Alcohol Use History: None Reported Additional Past Alcohol Use History / Comment(s): Quit smoking Mar 2017, smoked approx. 30yrs, 1PPD. Past Drug Use History: None Reported - Past Family History Mother Family Medical History: Diabetes Mellitus Father Family Medical History: Unable to Obtain Sister(s) Family Medical History: Cancer Surgical - Exam Vital Signs Temp Pulse Resp BP 97.6 F 87 16 160/71 10/03/18 15:12 10/03/18 15:12 10/03/18 15:12 10/03/18 15:12 - General well developed, well nourished, no distress - Eyes PERRL - ENT normal pinna - Abdomen Abdomen soft, incision sites are clean dry intact. Bariatric Assessment & Plan Plan: Status post LAP-BAND port replacement. Patient will have her LAP-BAND port adjustment at the next visit. Her arthritis is stable. She'll follow-up with her PCP. Bariatric Checklist Checklist: Plan: Checklist: EGD: 1. Hiatal hernia: 2. H. Pylori: HgbA1c: Vitamin D: Smoking: Former smoker Primary care physician referral: dr Keagan Avalos ([facility]) Psychiatry clearance: Cardiology clearance: Sleep study: Diet journal: VTE risk score: VTE risk level: Rehab needs at discharge:
== END ==
LOC: BARWHC3 14:57
PROVIDERS: ATTEND Surgery
DX: Z48.815 Encounter for surgical aftercare following surgery on the digestive system (principal); M19.90 Unspecified osteoarthritis, unspecified site; Z87.891 Personal history of nicotine dependence; Z98.84 Bariatric surgery status; Z90.49 Acquired absence of other specified parts of digestive tract
CPT/HCPCS: 99211

== ENCOUNTER → 2018-10-17 | Outpatient (CLI) | payer BC ==
[2018-10-17 15:08] VITALS: BP 156/81; PULSE 101; RESP 18; TEMP 97.3; BMI 40.4
--- NOTE | 2018-10-18 18:17 | P.HPBAR ---
Bariatric H&P - History & Physicial H&P Date: 10/17/18 History & Physicial: Visit/CC: requesting fill Patient initial contact: Initial weight: 110.762 kg Initial weight in pounds: 244.19 Height: 5 ft 9 in Initial BMI: 36.0 Last weight: Current weight: 124.103 kg Current weight in pounds: 273.60 Current BMI: 40.4 [place] body weight (based on NIH guidelines): 65.771 kg Excess body weight loss: The patient is a 53 year-old F who presents for Bariatric Assessment.the patient presents today for lap band adjustment. She had a new port placed several week She currently is hungry. Past Medical History Past Medical History: Deep Vein Thrombosis (DVT) Additional Past Medical History / Comment(s): "Quite a few DVT's in last 2 yrs." History of Any Multi-Drug Resistant Organisms: None Reported Past Surgical History: Bariatric Surgery, Cholecystectomy, Joint Replacement Additional Past Surgical History / Comment(s): Lap band 2007, redone 06/04, EGD, right knee replacement. Past Anesthesia/Blood Transfusion Reactions: No Reported Reaction Past Psychological History: No Psychological Hx Reported Smoking Status: Former smoker Past Alcohol Use History: None Reported Additional Past Alcohol Use History / Comment(s): Quit smoking Mar 2017, smoked approx. 30yrs, 1PPD. Past Drug Use History: None Reported - Past Family History Mother Family Medical History: Diabetes Mellitus Father Family Medical History: Unable to Obtain Sister(s) Family Medical History: Cancer Surgical - Exam Vital Signs Temp Pulse Resp BP Pulse Ox 97.3 F L 101 H 18 156/81 98 10/17/18 15:01 10/17/18 15:01 10/17/18 15:01 10/17/18 15:01 10/17/18 15:01 - General well developed, well nourished, no distress - Abdomen Abdomen: soft, non tender Bariatric Assessment & Plan Plan: patient's lap band was adjusted. 2 cc was added to the band. She will follow- up next month. Bariatric Checklist Checklist: Plan: Checklist: EGD: 1. Hiatal hernia: 2. H. Pylori: HgbA1c: Vitamin D: Smoking: Former smoker Primary care physician referral: dr Keagan Avalos ([facility]) Psychiatry clearance: Cardiology clearance: Sleep study: Diet journal: VTE risk score: VTE risk level: Rehab needs at discharge:
== END | disposition home or self-care (01) ==
LOC: BARWHC3 14:55
PROVIDERS: ATTEND Surgery
DX: Z46.51 Encounter for fitting and adjustment of gastric lap band (principal); Z87.891 Personal history of nicotine dependence
CPT/HCPCS: 99212

== ENCOUNTER → 2018-11-21 | Outpatient (CLI) | payer BC ==
[2018-11-21 15:23] VITALS: BP 136/74; PULSE 63; TEMP 98.2; BMI 38.5
--- NOTE | 2018-11-21 16:36 | P.HPBAR ---
Bariatric H&P - History & Physicial H&P Date: 11/21/18 History & Physicial: Visit/CC: lap band follow up Patient initial contact: Initial weight: 110.762 kg Initial weight in pounds: 244.19 Height: 5 ft 9 in Initial BMI: 36.0 Last weight: Current weight: 118.388 kg Current weight in pounds: 261.00 Current BMI: 38.5 [place] body weight (based on NIH guidelines): 65.771 kg Excess body weight loss: The patient is a 53 year-old F who presents for Bariatric Assessment. Patient presents today for lab band follow up. She is doing quite well. She has lost 12 pounds since her last visit last month. She currently has 2 mL in the band. She's had some minimal GERD. Past Medical History Past Medical History: Deep Vein Thrombosis (DVT) Additional Past Medical History / Comment(s): "Quite a few DVT's in last 2 yrs." History of Any Multi-Drug Resistant Organisms: None Reported Past Surgical History: Bariatric Surgery, Cholecystectomy, Joint Replacement Additional Past Surgical History / Comment(s): Lap band 2007, redone 06/04, EGD, right knee replacement. Past Anesthesia/Blood Transfusion Reactions: No Reported Reaction Past Psychological History: No Psychological Hx Reported Smoking Status: Former smoker Past Alcohol Use History: None Reported Additional Past Alcohol Use History / Comment(s): Quit smoking Mar 2017, smoked approx. 30yrs, 1PPD. Past Drug Use History: None Reported - Past Family History Mother Family Medical History: Diabetes Mellitus Father Family Medical History: Unable to Obtain Sister(s) Family Medical History: Cancer Surgical - Exam Vital Signs Temp Pulse BP 98.2 F 63 136/74 11/21/18 15:09 11/21/18 15:09 11/21/18 15:09 - General well developed, well nourished - Abdomen Abdomen: soft, non tender Bariatric Assessment & Plan Plan: The patient has had excellent weight loss. Her GERD is minimal will be observed. She'll follow-up in one month. Bariatric Checklist Checklist: Plan: Checklist: EGD: 1. Hiatal hernia: 2. H. Pylori: HgbA1c: Vitamin D: Smoking: Former smoker Primary care physician referral: dr Keagan Avalos ([facility]) Psychiatry clearance: Cardiology clearance: Sleep study: Diet journal: VTE risk score: VTE risk level: Rehab needs at discharge:
== END | disposition home or self-care (01) ==
LOC: BARWHC3 14:59
PROVIDERS: ATTEND Surgery
DX: Z48.815 Encounter for surgical aftercare following surgery on the digestive system (principal); K21.9 Gastro-esophageal reflux disease without esophagitis; Z98.84 Bariatric surgery status
CPT/HCPCS: 99212

== ENCOUNTER → 2020-07-23 | Outpatient (CLI) | payer BC | END | disposition home or self-care (01) | LOC: LABWHC1 16:03 | PROVIDERS: ATTEND Orthopaedic Surgery | DX: Z01.812 Encounter for preprocedural laboratory examination (principal) | CPT/HCPCS: 87070 ==

== ENCOUNTER → 2020-08-19 | Day surgery (SDC) | payer BC ==
[2020-08-12 15:23] VITALS: BMI 36.9
--- NOTE | 2020-08-18 16:45 | HP ---
HISTORY AND PHYSICAL REASON FOR ADMISSION: Surgery scheduled for 08/19/2020. HISTORY OF PRESENT ILLNESS: Zuleika Leblanc is a 55-year-old patient seen with symptomatic left knee osteoarthritis. We discussed options. She elected to proceed with left total knee arthroplasty. Consent regarding the procedure was obtained. Medical clearance was provided by Dr. Tanner. PAST MEDICAL HISTORY: Noncontributory. PAST SURGICAL HISTORY: Cholecystectomy. MEDICATIONS: Coumadin. ALLERGIES: NONE. SOCIAL HISTORY: She denies current tobacco use. PHYSICAL EXAMINATION: Evaluation of the left knee: Range of motion is negative 2 to 120. Tenderness along the lateral joint line. Crepitus along the lateral patellofemoral compartments with range of motion. Pain with patellofemoral compression. Ligaments stable. Hip rotation without pain. Distal neurovascular exam is intact. RADIOGRAPHS: Left knee radiographs reveal severe osteoarthritic changes. IMPRESSION: Left knee osteoarthritis. PLAN: Left total knee arthroplasty. Surgery scheduled 08/19/2020. MMODL / IJN: [id number] /
[~2020-08-19] MED LIST changes: +ACETAMINOPHEN TAB 500 MG TAB PO PRN; +DEXAMETHASONE SOD PHOSPHATE 4 MG/ML 1 ML VIAL IV ONE; +HYDROmorphone 0.5 MG/0.5 ML SYRINGE IVP PRN; +LIDOCAINE 1% (10MG/ML) FOR IV START INTRADERMA PRN; +MELOXICAM 7.5 MG TAB PO PRN; +MIDAZOLAM 2 MG/2 ML VIAL IV PRN; +ONDANSETRON 4 MG/2 ML VIAL IVP ONE; +ROPIVACAINE/EPI/CLONIDINE/KET 50 ML SYRINGE MISCELLANE PRN; +TRANEXAMIC ACID 1,000 MG in SODIUM CHLORIDE 0.9% 100 ML IVPB PRN; -ceFAZolin 3 GM in SODIUM CHLORIDE 0.9% 100 ML IVPB ONE; +fentaNYL (PF) 50 MCG/ML 2 ML AMP IVP PRN
[2020-08-19 09:21] VITALS: BP 133/70; PULSE 79; RESP 16; TEMP 98.2
[2020-08-19 09:32] LABS: INR 1.9 (<1.2); Prothrombin Time 19.1 sec (9.0-12.0)
== END ==
LOC: OR 08:19
PROVIDERS: ATTEND Orthopaedic Surgery
DX: M17.12 Unilateral primary osteoarthritis, left knee (principal); Z53.8 Procedure and treatment not carried out for other reasons; I10 Essential (primary) hypertension; Z86.718 Personal history of other venous thrombosis and embolism; Z87.891 Personal history of nicotine dependence; Z90.49 Acquired absence of other specified parts of digestive tract; Z79.899 Other long term (current) drug therapy; Z79.01 Long term (current) use of anticoagulants; Z91.048 Other nonmedicinal substance allergy status
CPT/HCPCS: 85610; J1100; J2405

== ENCOUNTER 2020-08-26 12:14 | Day surgery (SDC) | payer BC ==
[2020-08-22 12:55] VITALS: BMI 37.3
--- NOTE | 2020-08-25 17:27 | HP ---
HISTORY AND PHYSICAL REASON FOR ADMISSION: Surgery scheduled for 08/26/2020 HISTORY OF PRESENT ILLNESS: Zuleika Leblanc is a 55-year-old patient seen with symptomatic left knee osteoarthritis. We discussed options for treatment. She elected to proceed with left total knee arthroplasty. Consent was obtained. Medical clearance was provided by Dr. Tanner. PAST MEDICAL HISTORY: History of DVT. PAST SURGICAL HISTORY: Cholecystectomy. MEDICATIONS: Coumadin. ALLERGIES: IODINE. SOCIAL HISTORY: She denies current tobacco use. PHYSICAL EXAMINATION: Evaluation of the left knee: Range of motion is -2 to 120. Tenderness lateral joint line, crepitus lateral compartment, patellofemoral compartment. Pain with patellofemoral compression. Ligaments stable. Hip rotation without pain. Distal neurovascular exam is intact. RADIOGRAPHS: Radiographs of the left knee reveal severe osteoarthritic changes. IMPRESSION: Left knee osteoarthritis. PLAN: Left total knee arthroplasty. Surgery scheduled for 08/26/2020. MMODL / IJN: [id number] /
[~2020-08-26 12:14] MED LIST changes: -LIDOCAINE 1% (10MG/ML) FOR IV START INTRADERMA PRN; +ROPIVACAINE 246.25 MG, EPINEPHrine 0.5 MG, KETOROLAC 30 MG, cloNIDine HCL/PF 80 MCG, WA... MISCELLANE PRN; -ROPIVACAINE/EPI/CLONIDINE/KET 50 ML SYRINGE MISCELLANE PRN; -fentaNYL (PF) 50 MCG/ML 2 ML AMP IVP PRN
[2020-08-26] MEDS ORDERED: LIDOCAINE 1% (10MG/ML) FOR IV START INTRADERMA ONE (13:18)
[2020-08-26 13:39] LABS: INR 0.9 (<1.2); Prothrombin Time 9.7 sec (9.0-12.0)
[2020-08-26] MEDS ORDERED: TRANEXAMIC ACID 1,000 MG/10 ML VIAL ONE (15:21)
[2020-08-26] MEDS ORDERED: KETAMINE 10 MG/ML 20 ML VIAL ONE (15:21)
[2020-08-26] MEDS ORDERED: SODIUM CHLORIDE 0.9% 100 ML BAG ONE (15:21)
[2020-08-26] MEDS ORDERED: MIDAZOLAM 2 MG/2 ML VIAL ONE (15:21)
[2020-08-26] MEDS ORDERED: PROPOFOL 10 MG/ML 20 ML VIAL IV ONE (15:21)
[2020-08-26] MEDS ORDERED: fentaNYL (PF) 50 MCG/ML 2 ML AMP ONE (15:21)
[2020-08-26] MEDS: ROPIVACAINE/EPI/CLONIDINE/KET 50 ML SYRINGE MISCELLANE PRN ×3 (15:58→16:52)
[2020-08-26] MEDS ORDERED: LACTATED RINGERS 1,000 ML IV ONE ×2 (16:41→18:32)
[2020-08-26] MEDS ORDERED: ROPIVACAINE 0.2%-NS ON-Q PUMP 1,090 MG, EMPTY PAIN BALL 1 EACH MISCELLANE PRN (17:25)
[2020-08-26] MEDS ORDERED: NALOXONE 0.4 MG/ML 1 ML VIAL IV PRN (17:26)
[2020-08-26] MEDS ORDERED: HYDROcodone/APAP 7.5-325MG 1 EACH TAB PO PRN (17:26)
[2020-08-26] MEDS ORDERED: HYDROmorphone 1 MG/ML 1 ML SYRINGE IVP PRN (17:26)
[2020-08-26] MEDS ORDERED: ONDANSETRON 4 MG/2 ML VIAL IVP PRN (17:26)
[2020-08-26] MEDS ORDERED: HYDROmorphone 0.5 MG/0.5 ML SYRINGE IVP PRN (17:26)
[2020-08-26] MEDS ORDERED: HYDROmorphone 0.2 MG/1 ML SYRINGE IVP PRN (17:26)
--- NOTE | 2020-08-26 17:26 | P.OP ---
Date of Procedure: 08/26/20 Preoperative Diagnosis: Left knee osteoarthritis Postoperative Diagnosis: Left knee osteoarthritis Procedure(s) Performed: Left total knee arthroplasty Implants: 1. Depuy attune size 8 left cruciate-retaining cemented femur 2. Depuy attune size 8 fixed bearing cemented tibial baseplate 3. Depuy attune size 8 fixed bearing cruciate retaining 5 mm polyethylene tibial insert 4. Depuy attune 38 mm all polyethylene cemented patella Anesthesia: regional (Adductor canal catheter), local, spinal Surgeon: Garcia Yin Electrical Controls Assembler #1: Ben Rhodes Estimated Blood Loss (ml): 45 Pathology: other (Bone) Condition: stable Disposition: PACU Indications for Procedure: 55-year-old patient seen with symptomatic left knee osteoarthritis. After having treatment options discussed, she elected to proceed with total knee arthroplasty. Operative Findings: See description of procedure Description of Procedure: Patient was taken to the operative suite after having an adductor canal catheter placed by the department of anesthesia. Patient underwent a spinal anesthetic by the department of anesthesia. Patient was given preoperative IV intake antibiotics and TXA. A well-padded tourniquet was placed about the [] lower extremity. The lower extremity was then prepped and draped in the normal sterile orthopedic fashion. The extremity was elevated, a tourniquet was insuf flated to 300. A standard anterior incision was made sharply through skin. Dissection was taken down through the subcutaneous soft tissues down to the extensor mechanism. A medial arthrotomy was performed, patella was everted and knee was flexed. There was advanced osteoarthritis noted. I introduced my distal intramedullary femoral drill. I then introduced the distal femoral cutting jig. Tye SOLORIO secured the cutting jig with 2 pins. I held retractors in position while Tye SOLORIO performed the distal femoral resection through the guide area we now removed her distal femoral cutting guide. We now placed our 4-in-1 femoral cutting block and positioned and it was secured with 2 pins by Tye SOLORIO while I held the block in position. The distal femoral finishing was now completed. A proximal tibial cutting guide was positioned. I held the guide in the appropriate position with both hands well Tye SOLORIO inserted stabilizing pins into the guide. Proximal tibial cut was made. We now placed a trial femoral component into position, along with an appropriate size tibial tray and insert. We now took the knee through range of motion and had full extension good flexion and good overall soft tissue balance noted. The patella was everted and stabilized with 2 towel clips held by Tye SOLORIO while I performed a flush with patellar quad tendon utilizing a fresh sawblade. We templated the patella, appropriate drill holes were made. An appropriate trial patella was positioned, knee was taken through full range of motion with the patella tracking very nicely. The trial patella was removed. Drill holes were made through the femoral component. All trial components were removed after marking off the appropriate rotation of the tibia. Retractors were now positioned along the proximal tibia. I noted a subchondral bone cyst along the lateral tibial plateau area. It measured 1 cm by half a centimeter and we curetted out it was about 1 cm in depth. The borders were stable. An appropriate keel punch was made with the appropriate size tibial guide by myself on Tye SOLORIO assisted by holding retractors. At this point appropriate size implants were chosen and opened. The joint was irrigated copiously with pulse lavage mechanical irrigation. The posterior capsule was infiltrated with local analgesic. The wound was irrigated with pulse lavage mechanical irrigation. We mixed antibiotic methylmethacrylate. We placed the knee into flexion. We placed multiple retractors assisted by Tye SOLORIO to expose the proximal tibia. Once the methyl methacrylate was ready, the tibial component was cemented into place removing any excess methylmethacrylate form by both myself and Tye SOLORIO making sure to fill in the cystic defect. The femoral component was cemented into place removing the removing any excess methylmethacrylate performed by both myself and Tye SOLORIO. We then inserted the appropriate size polyethylene tibial insert. We made sure that it was locked into position. We took the knee into full extension, and then back in a flexion making sure we had removed any excess methylmethacrylate. The patellar component was then cemented down and secured with clamp. Excess methylmethacrylate removed. We kept the knee in full extension, patellar clamp in position until methylmethacrylate had hardened. Once it had hardened the patellar clamp was removed. The knee was taken through full range of motion. The patella tracked nicely. There was good soft tissue balancing. The tourniquet was now released. Additional hemostasis was achieved via electrocautery. A second gram of TXA was given. The wound again was irrigated with pulse lavage mechanical irrigation. The superficial soft tissues were infiltrated local analgesic. The extensor mechanism was repaired with #2 Ethibond. We checked the repair with range of motion and it was stable. The subcutaneous soft tissues were repaired with Vicryl in layers. The skin was approximated with pernio/Dermabond. Sterile dressings were applied followed by loose web roll and Anirudh bandage. The patient was transferred to a bed, and taken to recovery in stable and satisfactory condition. Tye SOLORIO assisted with this complex procedure.
--- NOTE | 2020-08-26 18:30 | XR ---
RESULT: HISTORY: Evaluation for Postop abnormality and alignment TECHNIQUE: 2 views of the left knee were obtained. COMPARISON: 07/02/2020. FINDINGS: There is interval postsurgical changes related to left total knee arthroplasty. No evidence of immedi ate hardware complication. There are postsurgical changes about the soft tissues. There is no acute f racture or dislocation. IMPRESSION: Expected postoperative changes of left total knee arthroplasty.
[2020-08-26] MEDS: HYDROcodone/APAP 5-325MG 1 EACH TAB PO PRN (19:40)
[2020-08-26] MEDS: LACTATED RINGERS 1,000 ML IV SCH ×2 (19:46→23:50)
[2020-08-26] MEDS ORDERED: WARFARIN 5 MG TAB PO ONE (20:00)
[2020-08-26] MEDS ORDERED: SENNOSIDES-DOCUSATE SODIUM 1 EACH TAB PO SCH (21:00)
--- NOTE | 2020-08-27 05:29 | P.CONS ---
History of Present Illness - Reason for Consult Consult date: 08/26/20 medical management post op Requesting physician: Garcia Yin - Chief Complaint left knee replacement - History of Present Illness 55-year-old female with hypertension, history of venous thromboembolism Patient comes in for scheduled left total knee arthroplasty patient tolerated procedure well with her immediate postoperative complications she denies any chest pain or trouble breathing denies any fevers or chills she reports that pain is well tolerated with pain pump and as needed pain medications. She tolerated by mouth intake Patient has history of thromboembolic some in the past and is chronically on Coumadin she denies any GI bleeding. She has history of hypertension well-controlled with medications Patient otherwise seems to be in good spirits and hoping that she can leave in the morning, she denies any symptoms suggestive of upper respiratory infections, denies any chest pain, denies any abdominal pain nausea or vomiting, denies any changes in her bowel habits or urinary habits. Review of Systems Pertinent positives as noted in HPI. All other systems were reviewed and are negative Past Medical History Past Medical History: Deep Vein Thrombosis (DVT), Hypertension, Osteoarthritis (OA), Pulmonary Embolus (PE) Additional Past Medical History / Comment(s): "Quite a few DVT's in last 2 yrs.",PEs 2017 History of Any Multi-Drug Resistant Organisms: None Reported Past Surgical History: Bariatric Surgery, Cholecystectomy, Joint Replacement Additional Past Surgical History / Comment(s): Lap band 2007-redone 06/04 fluid is present, EGD, right knee replacement. Past Anesthesia/Blood Transfusion Reactions: No Reported Reaction Additional Past Anesthesia/Blood Transfusion Reaction / Comm: no hx blood transfusion Past Psychological History: No Psychological Hx Reported Smoking Status: Former smoker Past Alcohol Use History: None Reported Additional Past Alcohol Use History / Comment(s): Quit smoking Mar 2017, smoked approx. 30yrs, 1PPD. Past Drug Use History: None Reported - Past Family History Mother Family Medical History: Diabetes Mellitus Father Family Medical History: No Reported History Sister(s) Family Medical History: Cancer Medications and Allergies Home Medications Medication Instructions Recorded Confirmed Type Folic Acid 800 mg PO DAILY 04/19/17 08/26/20 History Warfarin [Coumadin] 2.5 mg PO Q2D 11/02/17 08/26/20 History Metoprolol Succinate (ER) [Toprol 25 mg PO QAM 08/12/20 08/26/20 History Xl] Allergies Allergy/AdvReac Type Severity Reaction Status Date / Time Iodine and Iodide Containing Allergy Swelling Verified 08/26/20 13:05 Produc shellfish derived Allergy Swelling Verified 08/26/20 13:05 Physical Exam Vitals: Vital Signs Temp Pulse Pulse Pulse Resp BP Pulse Ox 08/27/20 02:31 98.3 F 64 165/82 95 08/26/20 21:17 74 150/81 95 08/26/20 21:03 80 118/55 08/26/20 20:48 82 161/81 94 L 08/26/20 20:32 80 168/84 95 08/26/20 20:17 75 168/89 97 08/26/20 20:02 77 155/100 98 08/26/20 19:56 18 08/26/20 19:48 85 140/82 98 08/26/20 19:32 75 133/81 97 08/26/20 19:17 72 130/80 97 08/26/20 18:30 68 18 136/67 95 08/26/20 18:16 78 18 129/66 96 08/26/20 18:01 64 16 122/68 96 08/26/20 17:49 97.1 F L 74 16 134/69 95 08/26/20 17:26 97.8 F 70 18 137/73 97 08/26/20 14:05 63 16 120/88 100 08/26/20 12:56 98.0 F 76 16 132/65 98 Intake and Output 08/26/20 08/26/20 08/27/20 14:59 22:59 06:59 Intake Total 600 1850 Output Total 45 Balance 600 1805 Intake: IV 600 1450 Intake, IV Titration 100 Amount Lactated Ringers 1,000 ml 100 @ 100 mls/hr IV .Q10H JAZIEL Rx#:[id number] Oral 300 Output: Estimated Blood Loss 45 Other: Voiding Method Toilet # Voids 1 Weight 114.3 kg 114.3 kg Constitutional: No acute distress, conversant, pleasant Eyes: Anicteric sclerae, moist conjunctiva, Pupils equal round reactive to light ENMT: NC/AT Oropharynx clear, no erythema, or exudates Neck: Supple, FROM, no masses, or JVD No carotid bruits No thyromegaly Lungs: Clear to auscultation Clear to percussion Normal respiratory effort, no accessory muscle use Cardiovascular: Heart regular in rate and rhythm, No murmurs, gallops, or rubs No peripheral edema Abdominal: Soft Nontender, no guarding, rebound or rigidity Abdomen moving with respiration Normoactive bowel sounds No hepatomegaly, No splenomegaly No palpable mass No abdominal wall hernia noted Skin: Normal temperature, tone, texture, turgor No induration No subcutaneous nodules No rash, lesions No ulcers Extremities: Left lower extremity and surgical dressing looks dry and intact and clean pain pump in place No digital cyanosis No clubbing Pedal pulses intact and symmetrical Radial pulses intact and symmetrical No calf tenderness Psychiatric: Alert and oriented to person, place and time Appropriate affect fair judgement Neuro Muscles Strength 5/5 in all 4 extremities except for limited exam over the left leg due to recent surgery Sensation to light touch grossly present throughout Cranial nerves II-XII grossly intact No focal sensory deficits Lymphatics: no palpable cervical or supraclavicular , or inguinal lymph nodes Assessment and Plan Assessment: Hypertension, currently elevated Optimize pain control Resume home blood pressure medications Continue to monitor blood pressure Patient has no symptoms of end organ damage currently asymptomatic History of multiple venous thromboembolic the Currently on Lovenox twice a day Resume Coumadin Monitor PT/INR Left total knee arthroplasty postoperative day 0 Pain management and DVT prophylaxis per orthopedics recommendations Follow-up CBC and complete metabolic panel in the morning Follow PT/INR Patient is full code Thank you for allowing us to participate in the care of this patient. Do not hesitate to contact us with questions. Someone can be reached from the [facility] hospitalist group at all hours of the day at [phone].
[2020-08-27] MEDS: HYDROcodone/APAP 5-325MG 1 EACH TAB PO PRN ×2 (07:18→13:02)
[2020-08-27 07:31] VITALS: BP 145/81; PULSE 61; RESP 16; TEMP 97.7
--- NOTE | 2020-08-27 07:37 | P.PN ---
Progress Note - Text 08/27/20 657am 55-year-old female status post total knee replacement. Patient has an On-Q pump for postop pain control with the solution running at 8 mL an hour. Patient has a VAS of 0. Dressing clean dry and intact. Plan to continue On-Q pump infusion
--- NOTE | 2020-08-27 07:48 | P.ANPRN ---
Procedure Note - Anesthesia - Nerve Block Performed Left Adductor Canal Infusion Time Out Performed: Yes Date of Procedure: 08/26/20 Procedure Start Time: 13:50 Procedure Stop Time: 14:06 Location of Patient: PreOp Indication: Acute Post-Operative Pain, Requested by Surgeon Sedation Type: Sedate with meaningful contact maintained Preparation: Sterile Prep, Sterile Dressing Position: Supine Catheter: Indwelling Needle Types: Pajunk Needle Gauge: 21 Ultrasound used to visualize needle placement: Yes Ultrasound used to observe medication spread: Yes Blood Aspirated: No Pain Paresthesia on Injection Noted: No Resistance on Injection: Normal Image Stored and Saved: Yes Events: Uneventful and Well Tolerated (ropi .5% 20 cc plus dexamethasone 4mg)
[2020-08-27] MEDS ORDERED: MELOXICAM 7.5 MG TAB PO SCH (09:00)
[2020-08-27] MEDS ORDERED: METOPROLOL SUCCINATE (ER) 25 MG TAB.ER.24H PO SCH (09:00)
[2020-08-27] MEDS ORDERED: ENOXAPARIN 30 MG/0.3 ML SYRINGE SQ SCH (09:00)
[2020-08-27 09:31] LABS: Basophils # (A) 0.04 X 10*3/uL (0.00-0.10); Basophils % (A) 0.3 %; Eosinophils # (A) 0 X 10*3/uL (0.04-0.35); Eosinophils % (A) 0 %; HCT 39.7 % (37.2-46.3); HGB 12.9 g/dL (12.0-15.0); Lymphocytes # (A) 1.32 X 10*3/uL (0.90-5.00); Lymphocytes % (A) 8.9 %; MCH 30.6 pg (27.0-32.0); MCHC 32.5 g/dL (32.0-37.0); MCV 94.1 fL (80.0-97.0); Mean Platelet Volume 10.9 fL (9.5-12.2); Monocytes # (A) 0.94 X 10*3/uL (0.20-1.00); Monocytes % (A) 6.4 %; Neutrophils # (A) 12.37 X 10*3/uL (1.80-7.70); Neutrophils % (A) 83.7 %; Platelet Count 231 X 10*3/uL (140-440); RBC 4.22 X 10*6/uL (4.10-5.20); RDW 12.3 % (11.5-14.5); WBC 14.78 X 10*3/uL (4.50-10.00)
[2020-08-27 09:40] LABS: African American GFR (CKD) 97.6 (60.0-200.0); Albumin 3.7 g/dL (3.80-4.90); Albumin/Globulin Ratio 1.68 (1.60-3.17); Anion Gap 5.7 mmol/L (4.00-12.00); BUN/Creat Ratio 17.5 Ratio (12.00-20.00); Calcium 8.7 mg/dL (8.7-10.3); Carbon Dioxide 24.3 mmol/L (21.6-31.8); Globulin 2.2 g/dL (1.6-3.3); Non-African American GFR(CKD) 84.2 (60.0-200.0); Potassium 4.4 mmol/L (3.5-5.5); Total Bilirubin 0.3 mg/dL (0.2-1.2); Total Protein 5.9 g/dL (6.2-8.2)
[2020-08-27 11:07] LABS: INR 0.96 (0.90-1.11); Prothrombin Time 10.5 sec (9.9-11.9)
--- NOTE | 2020-08-27 12:09 | P.PN ---
Subjective Progress Note Date: 08/27/20 Principal diagnosis: Status post left total knee arthroplasty Patient was evaluated at bedside, she is resting comfortably. She's done very well with physical therapy. She is tolerating her diet. She denies any headaches, lightheadedness, chest pain, shortness of breath, nausea vomiting, fever or chills. Objective - Vital Signs Vital signs: Vital Signs Temp 97.7 F 08/27/20 07:31 Pulse 61 08/27/20 07:31 Resp 16 08/27/20 07:31 BP 145/81 08/27/20 07:31 Pulse Ox 97 08/27/20 07:31 Intake & Output 08/26/20 08/27/20 08/27/20 18:59 06:59 18:59 Intake Total 2150 300 Output Total 45 Balance 2105 300 Weight 114.3 kg Intake: IV 2050 Intake, IV Titration 100 Amount Lactated Ringers 1,000 ml 100 @ 100 mls/hr IV .Q10H JAZIEL Rx#:[id number] Oral 300 Output: Estimated Blood Loss 45 Other: Voiding Method Toilet Toilet # Voids 1 - Exam Right lower extremity: Incision is clean, dry, and intact. The foam dressing is in good condition. [There is minimal soft tissue swelling and ecchymosis surrounding the medial and lateral aspects of the incision.] Calf is soft, no tenderness with palpation. Plantar flexion, dorsiflexion, EHL, FHL are intact. Sensory exam to light touch throughout the extremity is intact, [dorsal pedis pulses 2+.] - Labs CBC & Chem 7: 08/27/20 06:27 08/27/20 06:27 Labs: Abnormal Lab Results - Last 24 Hours (Table) 08/27/20 08/27/20 Range/Units 06:27 06:27 WBC 14.78 H (4.50-10.00) X 10*3/uL Immature Gran # 0.11 H (0.00-0.04) X 10*3/uL Neutrophils # 12.37 H (1.80-7.70) X 10*3/uL Eosinophils # 0 L (0.04-0.35) X 10*3/uL Total Protein 5.9 L (6.2-8.2) g/dL Albumin 3.70 L (3.80-4.90) g/dL Assessment and Plan Assessment: Status post right total knee arthroplasty Plan: Pain control, plan for discharge home on oral medication DVT prophylaxis, will resume Coumadin dose, also prescribed Lovenox 40 mg daily until INR is therapeutic. Prescription will also be placed for INR check for Wednesday08/30/2020 Icing and elevating techniques discussed Wound care instructions were discussed Home therapy and nursing after discharge Medical recommendations Plan for discharge home today Time with Patient: Less than 30
--- NOTE | 2020-08-27 12:13 | P.DS ---
Providers Date of admission: 08/26/2020 Expected date of discharge: 08/27/20 Attending physician: Garcia Yin Consults: 08/26/20 17:26 Consult Physician Routine Consulting Provider: Johann Allred Consult Reason/Comments: Medical management Do you want consulting provider notified?: Yes Primary care physician: Carlos King [facility] Course: Date of admission: 08/26/2020 Date of discharge: 08/27/2020 Admission diagnosis: Status post left total knee arthroplasty Discharge diagnosis: Same Attending physician: Dr. Yin Surgical procedures: Left total knee arthroplasty Brief history: Patient is a 55-year-old female with a history of progressive primary left knee osteoarthritis. At this point patient has failed conservative treatment measures and has opted to proceed with a elective left total knee arthroplasty. Hospital course: Details of patient's surgery can be found in operative report. Patient tolerated the procedure well and was subsequently transported to orthopedic floor. Patient's orthopeidc and medical care was provided daily. Patient had daily laboratory tests performed for evaluation of overall blood counts. Patient had daily physical therapy to include strengthening range of motion as well as education with walker ambulation. Patient was treated with Lovenox for their postoperative DVT prophylaxis during their inpatient stay. Patient was noted to have a relatively uneventful postoperative course. Patient reported satisfactory pain control with oral pain medications by postoperative day 0. Patient showed satisfactory progress with physical therapy. Patient moved steadily through the program and had no difficulty meeting the goals by postoperative day 1. Given patient's otherwise satisfactory course and having met physical therapy goals, plan is to discharge patient home on postoperative day 1. Discharge condition/disposition: Patient will be discharged home in stable condition. Discharge medications: Instructions are given on resumption of patient's normal daily medications per primary care recommendation, in addition patient will be prescribed for 7.5 mg/325 mg, Colace 100 mg, Lovenox 40 mg. Discharge instructions: 1. Wound care and infection precautions, keep incision dry and covered while showering, no lotions, creams, moisturizers. No soaking, tubs, pools, hottubs. Do not scrub over the incision. 2. Weight-bear as tolerated with walker / cane until follow-up. 3. Ice and elevate when necessary. Do not exceed 20 minutes per hour with ice pack. 4. Utilize compression sleeve until seen at first follow up appointment. 5. Visiting nursing care. 6. Home physical therapy including home CPM. 7. Pain meds and anticoagulants per prescription. 8. Pain medication has potential to cause constipation. Increase oral fluid and fiber intake. Contact primary care provider if you have not had a bowel movement within 48 hours after discharge 9. No anti-inflammatory medication until discussed at first post operative visit, this including Motrin, Aleve, Mobic, Diclofenac 10. Follow up in office at 2 weeks postop with Tye Rhodes PA-C 11. Follow up with your primary care doctor 7-10 days after discharge. 12. Contact [facility] with any questions, . Procedures: Left total knee arthroplasty Patient Condition at Discharge: Good Plan - Discharge Summary Discharge Rx Participant: No New Discharge Prescriptions: New Docusate [Colace] 100 mg PO DAILY #30 capsule Enoxaparin [Lovenox] 40 mg SQ DAILY #7 syringe HYDROcodone/APAP 7.5-325MG [[place] 7.5] 1 - 2 each PO Q6HR PRN #42 tab PRN Reason: Pain No Action Folic Acid 800 mg PO DAILY Warfarin [Coumadin] 2.5 mg PO Q2D Metoprolol Succinate (ER) [Toprol Xl] 25 mg PO QAM Discharge Medication List Folic Acid 800 mg PO DAILY 04/19/17 [History] Warfarin [Coumadin] 2.5 mg PO Q2D 11/02/17 [History] Metoprolol Succinate (ER) [Toprol Xl] 25 mg PO QAM 08/12/20 [History] Docusate [Colace] 100 mg PO DAILY #30 capsule 08/27/20 [Rx] Enoxaparin [Lovenox] 40 mg SQ DAILY #7 syringe 08/27/20 [Rx] HYDROcodone/APAP 7.5-325MG [[place] 7.5] 1 - 2 each PO Q6HR PRN #42 tab 08/27/20 [Rx] Follow up Appointment(s)/Referral(s): Duque Galen,Equipment [NON-STAFF] - (*Please call [facility] once home to arrange delivery of your Continuous Passive Motion (CPM) machine.) [facility], [NON-STAFF] - ([facility] will call you to set up your first visit. ) Ben Rhodes PAC [PHYSICIAN AIRFRAME TECHNICIAN] - 09/11/20 2:10 pm Carlos King MD [Primary Care Provider] - 1 Week Ambulatory/Diagnostic Orders: Prothrombin Time INR [LAB.AMB] Location: None Selected Activity/Diet/Wound Care/Special Instructions: Orthopedic Discharge Instructions: 1. Wound care and infection precautions, keep incision dry and covered while showering, no lotions, creams, moisturizers. No soaking, pools, hot tubs. Do not scrub over incision. 2. Weight-bear as tolerated with walker / cane until follow-up. 3. Ice and elevate when necessary. Do not exceed 20 minutes per hour with ice pack. 4. Utilize compression sleeve until seen at first follow up appointment. 5. Pain meds and anticoagulants per prescription. 6. Pain medication has potential to cause constipation. Increase oral fluid and fiber intake. Contact primary care provider if you have not had a bowel movement within 48 hours after discharge. 7. No anti-inflammatory medication until discussed at first post operative visit, this including Motrin, Aleve, Mobic, Diclofenac. 8. Follow up in office at 2 weeks postop with Tye Rhodes PA-C 9. Follow up with your primary care doctor 7-10 days after discharge. 10. Contact [facility] with any questions, . Discharge Disposition: HOME WITH HOME HEALTH SERVICES
--- NOTE | 2020-08-27 13:29 | P.PN ---
Subjective Progress Note Date: 08/27/20 No new complaints today. Doing well post-op. INR is subtherapeutic, requires lovenox bridging to coumadin as outpatient Objective - Vital Signs Vital signs: Vital Signs Temp 97.7 F 08/27/20 07:31 Pulse 61 08/27/20 07:31 Resp 16 08/27/20 07:31 BP 145/81 08/27/20 07:31 Pulse Ox 97 08/27/20 07:31 Intake & Output 08/26/20 08/27/20 08/27/20 18:59 06:59 18:59 Intake Total 2150 300 Output Total 45 Balance 2104 300 Weight 114.3 kg Intake: IV 2049 Intake, IV Titration 100 Amount Lactated Ringers 1,000 ml 100 @ 100 mls/hr IV .Q10H JAZIEL Rx#:[id number] Oral 300 Output: Estimated Blood Loss 45 Other: Voiding Method Toilet Toilet # Voids 1 - Exam Gen: awake, alert HEENT: normocephalic, atraumatic, good hearing acuity, moist mucous membranes Resp: good air exchange, breathing comfortably with no accessory muscle use CVS: good distal perfusion x 4, GI: soft, NTTP, ND : no SPT, no CVAT, martin catheter not present MSK: no pitting edema, no clubbing Neuro: non-focal, moving all extremities Psych: cooperative, euthymic mood - Labs CBC & Chem 7: 08/27/20 06:27 08/27/20 06:27 Labs: Abnormal Lab Results - Last 24 Hours (Table) 08/27/20 08/27/20 Range/Units 06:27 06:27 WBC 14.78 H (4.50-10.00) X 10*3/uL Immature Gran # 0.11 H (0.00-0.04) X 10*3/uL Neutrophils # 12.37 H (1.80-7.70) X 10*3/uL Eosinophils # 0 L (0.04-0.35) X 10*3/uL Total Protein 5.9 L (6.2-8.2) g/dL Albumin 3.70 L (3.80-4.90) g/dL Assessment and Plan Assessment: Hypertension, currently elevated Optimize pain control Resume home blood pressure medications Continue to monitor blood pressure Patient has no symptoms of end organ damage currently asymptomatic History of multiple venous thromboembolic the Currently on Lovenox twice a day Resume Coumadin Monitor PT/INR Will need to be bridged back to coumadin, can be done outpatient with lovenox injections. Left total knee arthroplasty postoperative day 0 Pain management and DVT prophylaxis per orthopedics recommendations Follow-up CBC and complete metabolic panel in the morning Follow PT/INR = 1.0 Patient is full code Thank you for allowing us to participate in the care of this patient. Do not hesitate to contact us with questions. Someone can be reached from the [facility] hospitalist group at all hours of the day at [phone].
[2020-08-27] MEDS ORDERED: WARFARIN 5 MG TAB PO ONE (18:00)
== END 2020-08-27 14:01 | disposition home health service (06) ==
LOC: OR 12:14 → 4SSUR 17:19 → OR 08-27 14:01
PROVIDERS: ATTEND Orthopaedic Surgery
DX: M17.12 Unilateral primary osteoarthritis, left knee (principal); M85.662 Other cyst of bone, left lower leg; I10 Essential (primary) hypertension; D68.8 Other specified coagulation defects; Z96.651 Presence of right artificial knee joint; Z98.84 Bariatric surgery status; Z86.718 Personal history of other venous thrombosis and embolism; Z86.711 Personal history of pulmonary embolism; Z87.891 Personal history of nicotine dependence; Z79.01 Long term (current) use of anticoagulants; Z79.899 Other long term (current) drug therapy; Z91.09 Other allergy status, other than to drugs and biological substances; Z91.013 Allergy to seafood; Z90.49 Acquired absence of other specified parts of digestive tract; Z83.3 Family history of diabetes mellitus; Z80.9 Family history of malignant neoplasm, unspecified
CPT/HCPCS: 97110; 97161; 64448; 76942; 80053; 85025; 85610 ×2; 73560; 27447; C1776; C1713; J2250; J1100; J0690 ×2; J2405; J1650; J2795; 88300

== ENCOUNTER → 2022-02-02 | Outpatient (CLI) | payer BC ==
[2022-02-02 23:00] LABS: Basophils # (A) 0.12 X 10*3/uL (0.00-0.10); Basophils % (A) 1.4 %; Eosinophils # (A) 0.27 X 10*3/uL (0.04-0.35); Eosinophils % (A) 3.1 %; HCT 45.4 % (37.2-46.3); HGB 14.5 g/dL (12.0-15.0); Immature Grans, Automated 0.2 %; Lymphocytes # (A) 2.94 X 10*3/uL (0.90-5.00); Lymphocytes % (A) 33.3 %; MCHC 31.9 g/dL (32.0-37.0); MCV 93.8 fL (80.0-97.0); Monocytes # (A) 0.54 X 10*3/uL (0.20-1.00); Monocytes % (A) 6.1 %; NRBC Per 100 WBC 0 /100 WBCS (0.0-0.0); Neutrophils # (A) 4.93 X 10*3/uL (1.80-7.70); Neutrophils % (A) 55.9 %; Platelet Count 284 X 10*3/uL (140-440); RBC 4.84 X 10*6/uL (4.10-5.20); RDW 12.6 % (11.5-14.5); WBC 8.82 X 10*3/uL (4.50-10.00)
[2022-02-03 00:49] LABS: Albumin 3.9 g/dL (3.8-4.9); Albumin/Globulin Ratio 1.16 (1.60-3.17); Anion Gap 10.6 mmol/L (10.00-18.00); BUN/Creat Ratio 10.7 Ratio (12.00-20.00); Blood Urea Nitrogen 10.7 mg/dL (9.0-27.0); Calcium 9.4 mg/dL (8.7-10.3); Globulin 3.4 g/dL (1.6-3.3); Non-African American GFR(CKD) 63.8 (60.0-200.0); Potassium 4.8 mmol/L (3.5-5.5); Total Bilirubin 0.2 mg/dL (0.30-1.20); Total Protein 7.3 g/dL (6.2-8.2)
== END | disposition home or self-care (01) ==
LOC: LABPAT 15:10
PROVIDERS: ATTEND Surgery
DX: Z01.818 Encounter for other preprocedural examination (principal)
CPT/HCPCS: 36415; 80053; 85025; 93005

== ENCOUNTER → 2022-03-16 | Outpatient (CLI) | payer BC ==
[2022-03-17 11:19] VITALS: BP 128/85; PULSE 85; TEMP 98.2; BMI 37.0
--- NOTE | 2022-03-30 15:13 | P.HPBAR ---
Bariatric H&P - History & Physicial H&P Date: 03/16/22 History & Physicial: Visit/CC: Patient initial contact: Initial weight: 110.762 kg Initial weight in pounds: 244.19 Height: 5 ft 7 in Initial BMI: 38.2 Last weight: Current weight: 107.501 kg Current weight in pounds: 237.00 Current BMI: 37.0 [place] body weight (based on NIH guidelines): 61.235 kg Excess body weight loss: 6.5% The patient is a 56 year-old F who presents for Bariatric Assessment. Patient presents today for bariatric follow-up. She has some myoclonus of GERD. She currently weighs 237 pounds. Steri-Strips weight 246 pounds. Past Medical History Past Medical History: Cancer, Deep Vein Thrombosis (DVT), Osteoarthritis (OA), Pulmonary Embolus (PE) Additional Past Medical History / Comment(s): "Quite a few DVT's since age 22.",PEs 2017, varicose veins, hx bleeding ulcers, skin cancer History of Any Multi-Drug Resistant Organisms: None Reported Past Surgical History: Bariatric Surgery, Cholecystectomy, Joint Replacement, Tonsillectomy Additional Past Surgical History / Comment(s): Lap band 2008-redone 06/04, EGD, raymundo knee replacement. lap band port replacement 03-09-22 Past Anesthesia/Blood Transfusion Reactions: Family History of Problems w/ Anesthesia Additional Past Anesthesia/Blood Transfusion Reaction / Comm: no hx blood transfusion, mother and binder cutter-PONV Past Psychological History: No Psychological Hx Reported Smoking Status: Current every day smoker Past Alcohol Use History: None Reported Additional Past Alcohol Use History / Comment(s): smoking < 1/2 PPD, smoked approx. 30yrs, Past Drug Use History: None Reported - Past Family History Mother Family Medical History: Diabetes Mellitus Father Family Medical History: No Reported History Sister(s) Family Medical History: Cancer Additional Family Medical History / Comment(s): breast Surgical - Exam Vital Signs Temp Pulse BP 98.2 F 85 128/85 03/16/22 14:39 03/16/22 14:39 03/16/22 14:39 - General well developed, well nourished, no distress - Eyes PERRL - ENT normal pinna - Neck no masses - Respiratory normal expansion - Cardiovascular Rhythm: regular - Abdomen Abdomen: soft, non tender Bariatric Assessment & Plan Plan: Resolving morbid obesity. Patient's GERD is minimal will be observed. She'll follow-up in 4 weeks. Bariatric Checklist Checklist: Plan: Checklist: EGD: 1. Hiatal hernia: 2. H. Pylori: HgbA1c: Vitamin D: Smoking: Former smoker Primary care physician referral: dr Keagan Avalos ([facility]) Psychiatry clearance: Cardiology clearance: Sleep study: Diet journal: VTE risk score: VTE risk level: Rehab needs at discharge:
== END ==
LOC: BARWHC3 13:44
PROVIDERS: ATTEND Surgery
DX: E66.01 Morbid (severe) obesity due to excess calories (principal); K21.9 Gastro-esophageal reflux disease without esophagitis; Z68.37 Body mass index [BMI] 37.0-37.9, adult; Z86.718 Personal history of other venous thrombosis and embolism; M19.90 Unspecified osteoarthritis, unspecified site; Z98.84 Bariatric surgery status; F17.200 Nicotine dependence, unspecified, uncomplicated; Z91.041 Radiographic dye allergy status; Z91.013 Allergy to seafood
CPT/HCPCS: 99211

== ENCOUNTER → 2022-05-04 | Outpatient (CLI) | payer BC ==
[2022-05-04 13:30] VITALS: BP 164/86; PULSE 94; RESP 16; TEMP 98; BMI 35.9
--- NOTE | 2022-05-04 14:38 | P.HPBAR ---
Bariatric H&P - History & Physicial H&P Date: 05/04/22 History & Physicial: Visit/CC: band adj Patient initial contact: Initial weight: 110.762 kg Initial weight in pounds: 244.19 Height: 5 ft 9 in Initial BMI: 36.0 Last weight: Current weight: 110.223 kg Current weight in pounds: 243.00 Current BMI: 35.9 [place] body weight (based on NIH guidelines): 65.771 kg Excess body weight loss: 1.1% The patient is a 56 year-old F who presents for Bariatric Assessment. Patient presents today for LAP-BAND adjustment. She currently feels hungry and is requesting a fill her current weight is 240 pounds. She was previously 237. She had 5 mL removed from her band recently. Past Medical History Past Medical History: Cancer, Deep Vein Thrombosis (DVT), Osteoarthritis (OA), Pulmonary Embolus (PE) Additional Past Medical History / Comment(s): "Quite a few DVT's since age 22.",PEs 2016, varicose veins, hx bleeding ulcers, skin cancer History of Any Multi-Drug Resistant Organisms: None Reported Past Surgical History: Bariatric Surgery, Cholecystectomy, Joint Replacement, Tonsillectomy Additional Past Surgical History / Comment(s): Lap band 2008-redone 06/04, EGD, raymundo knee replacement. 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 Smoking Status: Current every day smoker - Past Family History Mother Family Medical History: Diabetes Mellitus Father Family Medical History: No Reported History Sister(s) Family Medical History: Cancer Additional Family Medical History / Comment(s): breast Surgical - Exam Vital Signs Temp Pulse Resp BP 98 F 94 16 164/86 05/04/22 13:28 05/04/22 13:28 05/04/22 13:28 05/04/22 13:28 - General well developed, well nourished, no distress - Eyes PERRL - ENT normal pinna - Neck no masses - Respiratory normal expansion - Cardiovascular Rhythm: regular - Abdomen Abdomen: soft, non tender Bariatric Assessment & Plan Plan: Patient LAP-BAND was adjusted. She had 0.5 mL added to the band. She currently is 1.5 mL in the band. She will follow-up in 4 weeks. Bariatric Checklist Checklist: Plan: Checklist: EGD: 1. Hiatal hernia: 2. H. Pylori: HgbA1c: Vitamin D: Smoking: Former smoker Primary care physician referral: dr Keagan Avalos ([facility]) Psychiatry clearance: Cardiology clearance: Sleep study: Diet journal: VTE risk score: VTE risk level: Rehab needs at discharge:
== END ==
LOC: BARWHC3 13:01
PROVIDERS: ATTEND Surgery
DX: Z46.51 Encounter for fitting and adjustment of gastric lap band (principal); Z86.718 Personal history of other venous thrombosis and embolism; Z88.8 Allergy status to other drugs, medicaments and biological substances; Z87.891 Personal history of nicotine dependence; Z91.013 Allergy to seafood; M19.90 Unspecified osteoarthritis, unspecified site; Z86.711 Personal history of pulmonary embolism
CPT/HCPCS: 99212

== ENCOUNTER → 2022-06-01 | Outpatient (CLI) | payer BC ==
[2022-06-01 13:03] VITALS: BP 152/84; PULSE 82; RESP 12; TEMP 98; BMI 38.0
--- NOTE | 2022-06-01 14:59 | P.HPBAR ---
Bariatric H&P - History & Physicial H&P Date: 06/01/22 History & Physicial: Visit/CC: band adjustment Patient initial contact: Initial weight: 110.762 kg Initial weight in pounds: 244.19 Height: 5 ft 9 in Initial BMI: 36.0 Last weight: Current weight: 117.027 kg Current weight in pounds: 258.00 Current BMI: 38.0 [place] body weight (based on NIH guidelines): 65.771 kg Excess body weight loss: The patient is a 56 year-old F who presents for Bariatric Assessment. Patient is requesting a fill of her LAP-BAND. She currently feels hungry. Past Medical History Past Medical History: Cancer, Deep Vein Thrombosis (DVT), Osteoarthritis (OA), P ulmonary Embolus (PE) Additional Past Medical History / Comment(s): "Quite a few DVT's since age 22.",PEs 2016, varicose veins, hx bleeding ulcers, skin cancer History of Any Multi-Drug Resistant Organisms: None Reported Past Surgical History: Bariatric Surgery, Cholecystectomy, Joint Replacement, Tonsillectomy Additional Past Surgical History / Comment(s): Lap band 2008-redone 06/04, EGD, raymundo knee replacement. 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 Smoking Status: Current every day smoker - Past Family History Mother Family Medical History: Diabetes Mellitus Father Family Medical History: No Reported History Sister(s) Family Medical History: Cancer Additional Family Medical History / Comment(s): breast Surgical - Exam Vital Signs Temp Pulse Resp BP 98 F 82 12 152/84 06/01/22 12:58 06/01/22 12:58 06/01/22 12:58 06/01/22 12:58 - General well developed, well nourished, no distress - Eyes PERRL - ENT normal nares - Neck no masses - Respiratory normal expansion - Cardiovascular Rhythm: regular - Abdomen Abdomen: soft, non tender Bariatric Assessment & Plan Plan: Resolving morbid obesity. Patient LAP-BAND was adjusted. She'll 0.7 mL added to her band pressure currently is 2.2 mL in the band. She'll follow-up in 4 weeks. Bariatric Checklist Checklist: Plan: Checklist: EGD: 1. Hiatal hernia: 2. H. Pylori: HgbA1c: Vitamin D: Smoking: Former smoker Primary care physician referral: dr Keagan Avalos ([facility]) Psychiatry clearance: Cardiology clearance: Sleep study: Diet journal: VTE risk score: VTE risk level: Rehab needs at discharge:
== END ==
LOC: BARWHC3 12:53
PROVIDERS: ATTEND Surgery
DX: Z09 Encounter for follow-up examination after completed treatment for conditions other than malignant neoplasm (principal); Z98.84 Bariatric surgery status; E66.01 Morbid (severe) obesity due to excess calories; Z68.38 Body mass index [BMI] 38.0-38.9, adult
CPT/HCPCS: 99212

== ENCOUNTER → 2022-07-06 | Outpatient (CLI) | payer BC ==
[2022-07-06 13:38] VITALS: BP 150/82; PULSE 81; TEMP 97.7; BMI 39.9
--- NOTE | 2022-07-06 14:15 | P.HPBAR ---
Bariatric H&P - History & Physicial H&P Date: 07/06/22 History & Physicial: Visit/CC: lap band Patient initial contact: Initial weight: 110.762 kg Initial weight in pounds: 244.19 Height: 5 ft 9 in Initial BMI: 36.0 Last weight: Current weight: 122.742 kg Current weight in pounds: 270.60 Current BMI: 39.9 [place] body weight (based on NIH guidelines): 65.771 kg Excess body weight loss: The patient is a 56 year-old F who presents for Bariatric Assessment. Patient presents today for LAP-BAND follow-up. Patient complaints of hunger she was to have a fill. She is gained weight since her last visit. Past Medical History Past Medical History: Cancer, Deep Vein Thrombosis (DVT), Osteoarthritis (OA), Pulmonary Embolus (PE) Additional Past Medical History / Comment(s): "Quite a few DVT's since age 22.",PEs 2017, varicose veins, hx bleeding ulcers, skin cancer History of Any Multi-Drug Resistant Organisms: None Reported Past Surgical History: Bariatric Surgery, Cholecystectomy, Joint Replacement, Tonsillectomy Additional Past Surgical History / Comment(s): Lap band 2008-redone 06/04, EGD, raymundo knee replacement. 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 30yrs, Past Drug Use History: None Reported - Past Family History Mother Family Medical History: Diabetes Mellitus Father Family Medical History: No Reported History Sister(s) Family Medical History: Cancer Additional Family Medical History / Comment(s): breast Surgical - Exam Vital Signs Temp Pulse BP 97.7 F 81 150/82 07/06/22 13:32 07/06/22 13:32 07/06/22 13:32 - General well developed, well nourished, no distress - Eyes PERRL - ENT normal pinna - Neck no masses - Respiratory normal expansion - Cardiovascular Rhythm: regular - Abdomen Abdomen: soft, non tender Bariatric Assessment & Plan Plan: Patient's LAP-BAND was adjusted. She has 0.5 mL added to the band. She currently is 2.7 mL in the band. She will follow-up in 4 weeks. Bariatric Checklist Checklist: Plan: Checklist: EGD: 1. Hiatal hernia: 2. H. Pylori: HgbA1c: Vitamin D: Smoking: Former smoker Primary care physician referral: dr Keagan Avalos ([facility]) Psychiatry clearance: Cardiology clearance: Sleep study: Diet journal: VTE risk score: VTE risk level: Rehab needs at discharge:
== END ==
LOC: BARWHC3 13:23
PROVIDERS: ATTEND Surgery
DX: Z48.815 Encounter for surgical aftercare following surgery on the digestive system (principal); E66.01 Morbid (severe) obesity due to excess calories; Z98.84 Bariatric surgery status; Z91.041 Radiographic dye allergy status; Z91.013 Allergy to seafood; Z87.891 Personal history of nicotine dependence; Z68.41 Body mass index [BMI] 40.0-44.9, adult; M19.90 Unspecified osteoarthritis, unspecified site; I82.409 Acute embolism and thrombosis of unspecified deep veins of unspecified lower extremity
CPT/HCPCS: 99212

== ENCOUNTER → 2022-07-27 | Outpatient (CLI) | payer BC ==
[2022-07-27 13:13] VITALS: BP 159/83; PULSE 85; TEMP 98.2; BMI 40.6
--- NOTE | 2022-08-17 15:34 | P.HPBAR ---
Bariatric H&P - History & Physicial H&P Date: 07/27/22 History & Physicial: Visit/CC: lap band Patient initial contact: Initial weight: 110.762 kg Initial weight in pounds: 244.19 Height: 5 ft 9 in Initial BMI: 36.0 Last weight: Current weight: 124.738 kg Current weight in pounds: 275.00 Current BMI: 40.6 [place] body weight (based on NIH guidelines): 65.771 kg Excess body weight loss: The patient is a 57 year-old F who presents for Bariatric Assessment. Patient presents today for LAP-BAND follow-up. She's requesting a fill her band. Currently hungry. Past Medical History Past Medical History: Cancer, Deep Vein Thrombosis (DVT), Osteoarthritis (OA), Pulmonary Embolus (PE) Additional Past Medical History / Comment(s): "Quite a few DVT's since age 22.",PEs 2017, varicose veins, hx bleeding ulcers, skin cancer History of Any Multi-Drug Resistant Organisms: None Reported Past Surgical History: Bariatric Surgery, Cholecystectomy, Joint Replacement, Tonsillectomy Additional Past Surgical History / Comment(s): Lap band 2008-redone 06/04, EGD, raymundo knee replacement. lap band port replacement 03-09-22 Past Anesthesia/Blood Transfusion Reactions: Family History of Problems w/ Anesthesia Additional Past Anesthesia/Blood Transfusion Reaction / Comm: no hx blood transfusion, mother and stripper color-PONV Past Psychological History: No Psychological Hx Reported Smoking Status: Current every day smoker Past Alcohol Use History: None Reported Additional Past Alcohol Use History / Comment(s): smoking < 1/2 PPD, smoked approx. 30yrs, Past Drug Use History: None Reported - Past Family History Mother Family Medical History: Diabetes Mellitus Father Family Medical History: No Reported History Sister(s) Family Medical History: Cancer Additional Family Medical History / Comment(s): breast Surgical - Exam Vital Signs Temp Pulse BP 98.2 F 85 159/83 07/27/22 13:09 07/27/22 13:09 07/27/22 13:09 - General well developed, well nourished, no distress - Eyes PERRL - ENT normal pinna - Neck no masses - Respiratory normal expansion - Abdomen Abdomen: soft, non tender Bariatric Assessment & Plan Plan: Patient LAP-BAND was adjusted. She she had 3 mL added to the band. She'll follow-up in 4 weeks. Bariatric Checklist Checklist: Plan: Checklist: EGD: 1. Hiatal hernia: 2. H. Pylori: HgbA1c: Vitamin D: Smoking: Former smoker Primary care physician referral: dr Keagan Avalos ([facility]) Psychiatry clearance: Cardiology clearance: Sleep study: Diet journal: VTE risk score: VTE risk level: Rehab needs at discharge:
== END ==
LOC: BARWHC3 12:55
PROVIDERS: ATTEND Surgery
DX: E66.01 Morbid (severe) obesity due to excess calories (principal); M19.90 Unspecified osteoarthritis, unspecified site; Z86.711 Personal history of pulmonary embolism; I82.509 Chronic embolism and thrombosis of unspecified deep veins of unspecified lower extremity; Z68.41 Body mass index [BMI] 40.0-44.9, adult; Z88.8 Allergy status to other drugs, medicaments and biological substances; Z91.013 Allergy to seafood; Z87.891 Personal history of nicotine dependence
CPT/HCPCS: 99212

== ENCOUNTER → 2022-09-07 | Outpatient (CLI) | payer BC ==
[2022-09-07 14:58] VITALS: BP 133/80; PULSE 83; TEMP 97; BMI 40.7
--- NOTE | 2022-10-06 12:34 | P.HPBAR ---
Bariatric H&P - History & Physicial H&P Date: 09/07/22 History & Physicial: Visit/CC: lap band follow up Patient initial contact: Initial weight: 110.762 kg Initial weight in pounds: 244.19 Height: 5 ft 9 in Initial BMI: 36.0 Last weight: Current weight: 125.191 kg Current weight in pounds: 276.00 Current BMI: 40.7 [place] body weight (based on NIH guidelines): 65.771 kg Excess body weight loss: The patient is a 57 year-old F who presents for Bariatric Assessment. Patient presents today for LAP-BAND follow-up. She had some minimal dysphagia and GERD. She denies vomiting. She does not require a fill today. Past Medical History Past Medical History: Cancer, Deep Vein Thrombosis (DVT), Osteoarthritis (OA), Pulmonary Embolus (PE) Additional Past Medical History / Comment(s): "Quite a few DVT's since age 22 .",PEs 2017, varicose veins, hx bleeding ulcers, skin cancer History of Any Multi-Drug Resistant Organisms: None Reported Past Surgical History: Bariatric Surgery, Cholecystectomy, Joint Replacement, Tonsillectomy Additional Past Surgical History / Comment(s): Lap band 2008-redone 06/04, EGD, raymundo knee replacement. 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 Smoking Status: Current every day smoker - Past Family History Mother Family Medical History: Diabetes Mellitus Father Family Medical History: No Reported History Sister(s) Family Medical History: Cancer Additional Family Medical History / Comment(s): breast Surgical - Exam Vital Signs Temp Pulse BP 97 F L 83 133/80 09/07/22 14:56 09/07/22 14:56 09/07/22 14:56 - General well developed, well nourished, no distress - Eyes PERRL - ENT normal pinna - Neck no masses - Respiratory normal expansion - Cardiovascular Rhythm: regular - Abdomen Abdomen: soft, non tender Bariatric Assessment & Plan Plan: Mild GERD and dysphagia. Sleeve observed. Patient will not be adjusted today. She'll follow-up in 4 weeks. Bariatric Checklist Checklist: Plan: Checklist: EGD: 1. Hiatal hernia: 2. H. Pylori: HgbA1c: Vitamin D: Smoking: Former smoker Primary care physician referral: dr Keagan Avalos ([facility]) Psychiatry clearance: Cardiology clearance: Sleep study: Diet journal: VTE risk score: VTE risk level: Rehab needs at discharge:
== END ==
LOC: BARWHC3 12:56
PROVIDERS: ATTEND Surgery
DX: E66.01 Morbid (severe) obesity due to excess calories (principal); C80.1 Malignant (primary) neoplasm, unspecified; I82.409 Acute embolism and thrombosis of unspecified deep veins of unspecified lower extremity; M19.90 Unspecified osteoarthritis, unspecified site; I26.09 Other pulmonary embolism with acute cor pulmonale; Z91.041 Radiographic dye allergy status; Z68.41 Body mass index [BMI] 40.0-44.9, adult; Z91.013 Allergy to seafood; Z87.891 Personal history of nicotine dependence
CPT/HCPCS: 99211

== ENCOUNTER → 2022-10-05 | Outpatient (CLI) | payer BC ==
[2022-10-05 13:22] VITALS: BP 159/82; PULSE 97; TEMP 97.6; BMI 40.8
--- NOTE | 2022-10-06 10:22 | P.HPBAR ---
Bariatric H&P - History & Physicial H&P Date: 10/05/22 History & Physicial: Visit/CC: lap band Patient initial contact: Initial weight: 110.762 kg Initial weight in pounds: 244.19 Height: 5 ft 9 in Initial BMI: 36.0 Last weight: Current weight: 125.645 kg Current weight in pounds: 277.00 Current BMI: 40.8 [place] body weight (based on NIH guidelines): 65.771 kg Excess body weight loss: The patient is a 57 year-old F who presents for Bariatric Assessment. Patient presents today for bariatric follow-up. She is requesting a fill of her band. Past Medical History Past Medical History: Cancer, Deep Vein Thrombosis (DVT), Osteoarthritis (OA), Pulmonary Embolus (PE) Additional Past Medical History / Comment(s): "Quite a few DVT's since age 22.",PEs 2017, varicose veins, hx bleeding ulcers, skin cancer History of Any Multi-Drug Resistant Organisms: None Reported Past Surgical History: Bariatric Surgery, Cholecystectomy, Joint Replacement, Tonsillectomy Additional Past Surgical History / Comment(s): Lap band 2008-redone 06/04, EGD, raymundo knee replacement. 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 30yrs, Past Drug Use History: None Reported - Past Family History Mother Family Medical History: Diabetes Mellitus Father Family Medical History: No Reported History Sister(s) Family Medical History: Cancer Additional Family Medical History / Comment(s): breast Surgical - Exam Vital Signs Temp Pulse BP 97.6 F 97 159/82 10/05/22 13:18 10/05/22 13:18 10/05/22 13:18 - General well developed, well nourished, no distress - Eyes PERRL - ENT normal pinna - Neck no masses - Respiratory normal expansion - Cardiovascular Rhythm: regular - Abdomen Abdomen: soft, non tender Bariatric Assessment & Plan Plan: Patient's LAP-BAND was adjusted. She had 1 mL added to the band. She'll follow-up in 4 weeks. Bariatric Checklist Checklist: Plan: Checklist: EGD: 1. Hiatal hernia: 2. H. Pylori: HgbA1c: Vitamin D: Smoking: Former smoker Primary care physician referral: dr Keagan Avalos ([facility]) Psychiatry clearance: Cardiology clearance: Sleep study: Diet journal: VTE risk score: VTE risk level: Rehab needs at discharge:
== END ==
LOC: BARWHC3 12:53
PROVIDERS: ATTEND Surgery
DX: E66.01 Morbid (severe) obesity due to excess calories (principal); Z98.84 Bariatric surgery status; Z46.51 Encounter for fitting and adjustment of gastric lap band; F17.200 Nicotine dependence, unspecified, uncomplicated; Z86.718 Personal history of other venous thrombosis and embolism; M19.90 Unspecified osteoarthritis, unspecified site; I26.99 Other pulmonary embolism without acute cor pulmonale; Z68.41 Body mass index [BMI] 40.0-44.9, adult; Z91.013 Allergy to seafood; Z91.041 Radiographic dye allergy status
CPT/HCPCS: 99212

== ENCOUNTER → 2022-11-02 | Outpatient (CLI) | payer BC ==
[2022-11-02 13:56] VITALS: BP 147/85; PULSE 84; TEMP 98; BMI 38.9
--- NOTE | 2022-11-02 15:50 | P.HPBAR ---
Bariatric H&P - History & Physicial H&P Date: 11/02/22 History & Physicial: Visit/CC: lap band Patient initial contact: Initial weight: 110.762 kg Initial weight in pounds: 244.19 Height: 5 ft 9 in Initial BMI: 36.0 Last weight: Current weight: 119.748 kg Current weight in pounds: 264.00 Current BMI: 38.9 [place] body weight (based on NIH guidelines): 65.771 kg Excess body weight loss: The patient is a 57 year-old F who presents for Bariatric Assessment. Patient presents today for LAP-BAND follow-up. She's requesting some fluid removed from her band. She's had some problems with GERD Past Medical History Past Medical History: Cancer, Deep Vein Thrombosis (DVT), Osteoarthritis (OA), Pulmonary Embolus (PE) Additional Past Medical History / Comment(s): "Quite a few DVT's since age 22.",PEs 2017, varicose veins, hx bleeding ulcers, skin cancer History of Any Multi-Drug Resistant Organisms: None Reported Past Surgical History: Bariatric Surgery, Cholecystectomy, Joint Replacement, Tonsillectomy Additional Past Surgical History / Comment(s): Lap band 2008-redone 06/04, EGD, raymundo knee replacement. 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 30yrs, Past Drug Use History: None Reported - Past Family History Mother Family Medical History: Diabetes Mellitus Father Family Medical History: No Reported History Sister(s) Family Medical History: Cancer Additional Family Medical History / Comment(s): breast Surgical - Exam Vital Signs Temp Pulse BP 98 F 84 147/85 11/02/22 13:53 11/02/22 13:53 11/02/22 13:53 - General well developed, well nourished, no distress - Eyes PERRL - ENT normal pinna - Neck no masses - Respiratory normal expansion - Cardiovascular Rhythm: regular - Abdomen Abdomen: soft, non tender Bariatric Assessment & Plan Plan: Patient LAP-BAND was just. She had 1 mL refer band. She currently has 3 mL in the band. She'll follow-up in 4 weeks. Bariatric Checklist Checklist: Plan: Checklist: EGD: 1. Hiatal hernia: 2. H. Pylori: HgbA1c: Vitamin D: Smoking: Former smoker Primary care physician referral: dr Keagan Avalos ([facility]) Psychiatry clearance: Cardiology clearance: Sleep study: Diet journal: VTE risk score: VTE risk level: Rehab needs at discharge:
== END ==
LOC: BARWHC3 13:20
PROVIDERS: ATTEND Surgery
DX: E66.01 Morbid (severe) obesity due to excess calories (principal); Z46.51 Encounter for fitting and adjustment of gastric lap band; F17.200 Nicotine dependence, unspecified, uncomplicated; Z86.718 Personal history of other venous thrombosis and embolism; M19.90 Unspecified osteoarthritis, unspecified site; I26.99 Other pulmonary embolism without acute cor pulmonale; Z91.013 Allergy to seafood; Z91.02 Food additives allergy status
CPT/HCPCS: 99212

== ENCOUNTER 2023-10-18 12:46 | Day surgery (SDC) | payer BC ==
[2023-10-14 13:38] VITALS: BMI 41.3
[~2023-10-18 12:46] MED LIST changes: -ACETAMINOPHEN TAB 500 MG TAB PO PRN; -DEXAMETHASONE SOD PHOSPHATE 4 MG/ML 1 ML VIAL IV ONE; -HYDROmorphone 0.5 MG/0.5 ML SYRINGE IVP PRN; -LACTATED RINGERS 1,000 ML IV SCH; +LIDOCAINE 1% (10MG/ML) FOR IV START INTRADERMA PRN; -MELOXICAM 7.5 MG TAB PO PRN; -MIDAZOLAM 2 MG/2 ML VIAL IV PRN; -ONDANSETRON 4 MG/2 ML VIAL IVP ONE; -ROPIVACAINE 246.25 MG, EPINEPHrine 0.5 MG, KETOROLAC 30 MG, cloNIDine HCL/PF 80 MCG, WA... MISCELLANE PRN; -TRANEXAMIC ACID 1,000 MG in SODIUM CHLORIDE 0.9% 100 ML IVPB PRN
[2023-10-18] MEDS: LACTATED RINGERS 1,000 ML IV SCH (13:16)
[2023-10-18 13:29] VITALS: RESP 16; TEMP 97.6
[2023-10-18] MEDS ORDERED: PROPOFOL 10 MG/ML 20 ML VIAL IV ONE (13:58)
[2023-10-18] MEDS ORDERED: LIDOCAINE 1% INJ 10MG/ML (20 ML MDV) ONE (13:58)
[2023-10-18] MEDS ORDERED: GLYCOPYRROLATE 0.2 MG/ML 2 ML VIAL ONE (13:58)
--- NOTE | 2023-10-18 14:13 | P.GSHP ---
History of Present Illness H&P Date: 10/18/23 Chief Complaint: GERD this is a 58-year-old female presents today for EGD. Patient has complaints of GERD. Past Medical History Past Medical History: Cancer, Deep Vein Thrombosis (DVT), Osteoarthritis (OA), Pulmonary Embolus (PE) Additional Past Medical History / Comment(s): "Quite a few DVT's since age 22.",PEs 2017, varicose veins, hx bleeding ulcers, basal cell skin cancer. History of Any Multi-Drug Resistant Organisms: None Reported Past Surgical History: Bariatric Surgery, Cholecystectomy, Joint Replacement, Tonsillectomy Additional Past Surgical History / Comment(s): Lap band 2008-redone 06/04, EGD, raymundo knee replacement. lap band port replacement 03-09-22 Past Anesthesia/Blood Transfusion Reactions: Family History of Problems w/ Anesthesia Additional Past Anesthesia/Blood Transfusion Reaction / Comment(s): no hx blood transfusion, mother and sister-PONV Smoking Status: Current every day smoker - Past Family History Mother Family Medical History: Diabetes Mellitus Father Family Medical History: No Reported History Sister(s) Family Medical History: Cancer Additional Family Medical History / Comment(s): breast and brain cancer. Medications and Allergies Home Medications Medication Instructions Recorded Confirmed Type Folic Acid 800 mg PO QAM 04/19/17 10/14/23 History Warfarin [Coumadin] 5 mg PO Q2D 03/05/22 10/14/23 History Acetaminophen Tab [Tylenol] 650 mg PO Q6H #30 tab 03/09/22 10/14/23 Rx Docusate [Colace] 100 mg PO QAM 10/14/23 10/14/23 History Allergies Allergy/AdvReac Type Severity Reaction Status Date / Time Iodine and Iodide Containing Allergy Swelling Verified 10/18/23 13:01 Produc shellfish derived Allergy Swelling Verified 10/18/23 13:01 Surgical - Exam Vital Signs Temp Pulse Resp BP Pulse Ox 97.6 F 78 16 168/74 98 10/18/23 13:05 10/18/23 13:05 10/18/23 13:05 10/18/23 13:05 10/18/23 13:05 - General well developed, well nourished, no distress - Eyes PERRL - ENT normal pinna, normal nares - Neck no masses - Respiratory normal expansion - Cardiovascular Rhythm: regular - Abdomen Abdomen: soft, non tender Assessment and Plan Assessment: we will perform EGD.
--- NOTE | 2023-10-18 14:16 | P.OP ---
Date of Procedure: 10/18/23 Preoperative Diagnosis: GERD Postoperative Diagnosis: esophagitis Procedure(s) Performed: EGD Anesthesia: MAC Surgeon: Joel Wu Pathology: other (esophagus) Condition: stable Disposition: PACU Description of Procedure: the patient's placed on the endoscopy table in the lateral position. She receiv ed IV sedation. The gastro-/oropharynx passed in the esophagus into the stomach. Scope placement pylorus. The first and second portion of the duodenum appeared normal. Scope was brought back the antrum thithis appeared mildly inflamed. Scope was retroflexed the remainder stomach appeared normal. The patient had a previously placed LAP-BAND device. This without evidence of inflammation or erosion. The GE junction was at 40 cm per the distal esophagus appeared inflamed. A biopsies performed. The proximal esophagus appeared normal. Scope withdrawn for patient.
[2023-10-18 14:59] VITALS: BP 133/75; PULSE 77
== END 2023-10-18 15:32 | disposition home or self-care (01) ==
LOC: ORWHC2ENDO 12:46
PROVIDERS: ATTEND Surgery
DX: K21.00 Gastro-esophageal reflux disease with esophagitis, without bleeding (principal); M19.90 Unspecified osteoarthritis, unspecified site; F17.200 Nicotine dependence, unspecified, uncomplicated; Z85.828 Personal history of other malignant neoplasm of skin; Z86.711 Personal history of pulmonary embolism; Z86.718 Personal history of other venous thrombosis and embolism; Z88.8 Allergy status to other drugs, medicaments and biological substances; Z90.49 Acquired absence of other specified parts of digestive tract; Z91.041 Radiographic dye allergy status; Z98.84 Bariatric surgery status; Z79.899 Other long term (current) drug therapy
CPT/HCPCS: 88305; 43239; J2001; J2704

== ENCOUNTER → 2023-10-25 | Outpatient (CLI) | payer BC ==
[2023-10-25 13:43] VITALS: BP 154/86; PULSE 89; TEMP 97.7; BMI 42.4
--- NOTE | 2023-10-28 13:00 | P.HPBAR ---
Bariatric H&P - History & Physicial H&P Date: 10/25/23 History & Physicial: Visit/CC: EGD F/U Patient initial contact: Initial weight: 110.762 kg Initial weight in pounds: 244.19 Height: 5 ft 9 in Initial BMI: 36.0 Last weight: Current weight: 130.408 kg Current weight in pounds: 287.50 Current BMI: 42.4 [place] body weight (based on NIH guidelines): 65.771 kg Excess body weight loss: The patient is a 58 year-old F who presents for Bariatric Assessment.patient resents today for bariatric follow. She's had some minimal GERD. Past Medical History Past Medical History: Cancer, Deep Vein Thrombosis (DVT), Osteoarthritis (OA), Pulmonary Embolus (PE) Additional Past Medical History / Comment(s): "Quite a few DVT's since age 22.",PEs 2017, varicose veins, hx bleeding ulcers, basal cell skin cancer. History of Any Multi-Drug Resistant Organisms: None Reported Past Surgical History: Bariatric Surgery, Cholecystectomy, Joint Replacement, Tonsillectomy Additional Past Surgical History / Comment(s): Lap band 2008-redone 06/04, EGD, raymundo knee replacement. lap band port replacement 03-09-22 Past Anesthesia/Blood Transfusion Reactions: Family History of Problems w/ Anesthesia Additional Past Anesthesia/Blood Transfusion Reaction / Comm: no hx blood transfusion, mother and sister-PONV Past Psychological History: No Psychological Hx Reported Smoking Status: Current every day smoker Past Alcohol Use History: None Reported Additional Past Alcohol Use History / Comment(s): smoking < 1/2 PPD, smoked approx. 30yrs, Past Drug Use History: None Reported - Past Family History Mother Family Medical History: Diabetes Mellitus Father Family Medical History: No Reported History Sister(s) Family Medical History: Cancer Additional Family Medical History / Comment(s): breast and brain cancer. Surgical - Exam Vital Signs Temp Pulse BP 97.7 F 89 154/86 10/25/23 13:15 10/25/23 13:15 10/25/23 13:15 - General well developed, well nourished, no distress - Eyes PERRL - ENT normal pinna - Neck no masses - Respiratory normal expansion - Cardiovascular Rhythm: regular - Abdomen Abdomen: soft, non tender Bariatric Assessment & Plan Plan: patient's doing well. Her GERD is minimal will be observed. She'll follow-up in 4 weeks. Bariatric Checklist Checklist: Plan: Checklist: EGD: 1. Hiatal hernia: 2. H. Pylori: HgbA1c: Vitamin D: Smoking: Former smoker Primary care physician referral: dr Keagan Avalos ([facility]) Psychiatry clearance: Cardiology clearance: Sleep study: Diet journal: VTE risk score: VTE risk level: Rehab needs at discharge:
== END ==
LOC: BARWHC3 08:32
PROVIDERS: ATTEND Surgery
DX: K21.9 Gastro-esophageal reflux disease without esophagitis (principal); F17.210 Nicotine dependence, cigarettes, uncomplicated; Z98.84 Bariatric surgery status; Z88.8 Allergy status to other drugs, medicaments and biological substances; Z91.013 Allergy to seafood; Z91.041 Radiographic dye allergy status
CPT/HCPCS: 99211

== ENCOUNTER → 2023-11-08 | Outpatient (CLI) | payer BC ==
[2023-11-08 15:11] VITALS: BMI 42.7
[2023-11-08 18:21] LABS: HCT 44.8 % (37.2-46.3); HGB 14.4 g/dL (12.0-15.0); MCH 30.5 pg (27.0-32.0); MCHC 32.1 g/dL (32.0-37.0); MCV 94.9 FL (80.0-97.0); Mean Platelet Volume 11.2 FL (9.5-12.2); NRBC Per 100 WBC 0 X 10*3/uL (0.00-0.01); Platelet Count 253 X 10*3/uL (140-440); RBC 4.72 X 10*6/uL (4.10-5.20); RDW 13.1 % (11.5-14.5); WBC 8.69 X 10*3/uL (4.50-10.00)
[2023-11-08 18:22] LABS: Basophils % (A) 1.2 %; Eosinophils # (A) 0.31 X 10*3/uL (0.04-0.35); Eosinophils % (A) 3.6 %; Lymphocytes # (A) 2.66 X 10*3/uL (0.90-5.00); Lymphocytes % (A) 30.6 %; Monocytes # (A) 0.61 X 10*3/uL (0.20-1.00); Neutrophils # (A) 4.99 X 10*3/uL (1.80-7.70); Neutrophils % (A) 57.4 %
[2023-11-08 19:45] LABS: ALT 16 U/L (8-44); AST 21 U/L (13-35); Albumin 3.9 g/dL (3.8-4.9); Albumin/Globulin Ratio 1.11 Ratio (1.60-3.17); Alkaline Phosphatase 119 U/L (41-126); Blood Urea Nitrogen 15.4 mg/dL (9.0-27.0); Carbon Dioxide 25.7 mmol/L (21.6-31.8); Chloride 104 mmol/L (96-109); Globulin 3.5 g/dL (1.6-3.3); Glucose 87 mg/dL (70-110); Potassium 4.7 mmol/L (3.5-5.5); Sodium 140 mmol/L (135-145); Total Bilirubin 0.2 mg/dL (0.3-1.2); Total Protein 7.4 g/dL (6.2-8.2)
== END ==
LOC: BARWHC3 12:52
PROVIDERS: ATTEND Surgery
DX: Z01.818 Encounter for other preprocedural examination (principal); E66.01 Morbid (severe) obesity due to excess calories; Z71.3 Dietary counseling and surveillance; Z91.041 Radiographic dye allergy status; Z91.013 Allergy to seafood; Z87.891 Personal history of nicotine dependence; Z68.41 Body mass index [BMI] 40.0-44.9, adult
CPT/HCPCS: 80053; 85025; 93005; 97804

== ENCOUNTER 2023-11-30 09:13 | Day surgery (SDC) | payer BC ==
[~2023-11-30 09:13] MED LIST changes: +HYDROmorphone 0.5 MG/0.5 ML SYRINGE IVP PRN; +MIDAZOLAM 2 MG/2 ML VIAL IV PRN
[2023-11-30] MEDS: LACTATED RINGERS 1,000 ML IV ONE ×3 (09:40→11:15)
--- NOTE | 2023-11-30 09:47 | P.GSHP ---
History of Present Illness H&P Date: 11/30/23 Chief Complaint: GERD morbid obesity this a 58-year-old female who's had issues with her LAP-BAND. Patient has issues chronic GERD and dysphagia related to her LAP-BAND. Patient presents today for removal of LAP-BAND conversion to sleeve gastrectomy. Patient's aware the risk of injury to the stomach liver spleen is also a risk of possible gastric perforation leak or bleeding. Past Medical History Past Medical History: Cancer, Deep Vein Thrombosis (DVT), Osteoarthritis (OA), Pulmonary Embolus (PE) Additional Past Medical History / Comment(s): "Quite a few DVT's since age 22", PEs 2016, varicose veins, hx bleeding ulcers, basal cell skin cancer. History of Any Multi-Drug Resistant Organisms: None Reported Past Surgical History: Bariatric Surgery, Cholecystectomy, Joint Replacement, Tonsillectomy Additional Past Surgical History / Comment(s): Lap band 2008-redone 06/04, EGD, raymundo knee replacement, lap band port replacement 03-09-22 Past Anesthesia/Blood Transfusion Reactions: No Reported Reaction, Family History of Problems w/ Anesthesia Additional Past Anesthesia/Blood Transfusion Reaction / Comment(s): no hx blood transfusion, mother and sister-PONV Past Psychological History: No Psychological Hx Reported Smoking Status: Current every day smoker Past Alcohol Use History: None Reported Additional Past Alcohol Use History / Comment(s): smoking < 1/2 PPD, smoked ap prox. 30yrs, Past Drug Use History: None Reported - Past Family History Mother Family Medical History: Diabetes Mellitus Father Family Medical History: No Reported History Sister(s) Family Medical History: Cancer Additional Family Medical History / Comment(s): breast and brain cancer. Medications and Allergies Home Medications Medication Instructions Recorded Confirmed Type Apixaban [Eliquis] 5 mg PO BID 11/24/23 11/24/23 History Folic Acid 0.8 mg PO DAILY 11/24/23 11/24/23 History Allergies Allergy/AdvReac Type Severity Reaction Status Date / Time Iodine and Iodide Containing Allergy Swelling Verified 11/24/23 15:15 Produc shellfish derived Allergy Swelling Verified 11/24/23 15:15 Surgical - Exam - General well developed, well nourished, no distress - Eyes PERRL - ENT normal pinna - Respiratory normal expansion - Cardiovascular Rhythm: regular - Abdomen Abdomen: soft, non tender Assessment and Plan Assessment: dysphagia related to LAP-BAND. Patient will have her LAP-BAND removed and converted to sleeve gastrectomy.
[2023-11-30] MEDS: DEXAMETHASONE SOD PHOSPHATE 4 MG/ML 1 ML VIAL IV ONE (09:57)
[2023-11-30] MEDS: ONDANSETRON 4 MG/2 ML VIAL IVP ONE (09:57)
[2023-11-30] MEDS: ENOXAPARIN 40 MG/0.4 ML SYRINGE SQ PRN (09:58)
[2023-11-30] MEDS ORDERED: KETAMINE HCL IN 0.9 % NACL 50 MG/5 ML SYRINGE ONE (10:01)
[2023-11-30] MEDS ORDERED: PROPOFOL 10 MG/ML 20 ML VIAL IV ONE (10:01)
[2023-11-30] MEDS ORDERED: GLYCOPYRROLATE 0.2 MG/ML 2 ML VIAL ONE (10:01)
[2023-11-30] MEDS ORDERED: HYDROmorphone (PF) 1 MG/ML ONE (10:01)
[2023-11-30] MEDS ORDERED: LIDOCAINE 1% INJ 10MG/ML (20 ML MDV) ONE (10:01)
[2023-11-30] MEDS ORDERED: PHENYLEPHRINE-0.9% NACL SYG 1,000 MCG/10 ML SYRINGE ONE (10:01)
[2023-11-30] MEDS ORDERED: fentaNYL (PF) 50 MCG/ML 2 ML AMP ONE (10:01)
[2023-11-30] MEDS ORDERED: ROCURONIUM 10 MG/ML (5 ML VIAL) IV ONE (10:01)
[2023-11-30] MEDS ORDERED: MIDAZOLAM 2 MG/2 ML VIAL ONE (10:01)
[2023-11-30] MEDS ORDERED: NEOSTIGMINE 1 MG/ML 10 ML VIAL ONE (10:01)
[2023-11-30] MEDS ORDERED: SUCCINYLCHOLINE CHLORIDE 200 MG/10 ML VIAL IV ONE (10:01)
[2023-11-30] MEDS: ceFAZolin 3 GM in SODIUM CHLORIDE 0.9% 100 ML IVPB PRN (10:06)
[2023-11-30] MEDS: LIDOCAINE 1%-EPI 1:100,000 20 ML VIAL SQ ONE (10:35)
[2023-11-30] MEDS ORDERED: NALOXONE 0.4 MG/ML 1 ML VIAL IV PRN (12:04)
[2023-11-30] MEDS ORDERED: ONDANSETRON 4 MG/2 ML VIAL IVP PRN (12:04)
[2023-11-30] MEDS ORDERED: diphenhydrAMINE 50 MG/ML 1 ML VIAL IVP PRN (12:04)
[2023-11-30] MEDS ORDERED: ACETAMINOPHEN ORAL SUSP 160 MG/5 ML CUP PO PRN (12:04)
--- NOTE | 2023-11-30 12:04 | P.OP ---
Date of Procedure: 11/30/23 Preoperative Diagnosis: dysphagia Morbid obesity, BMI 41 Postoperative Diagnosis: dysphagia Morbid obesity, BMI 41 Procedure(s) Performed: laparoscopic removal of LAP-BAND system Laparoscopic sleeve gastrectomy Anesthesia: JESSICA Surgeon: Joel Wu Estimated Blood Loss (ml): 25 Pathology: other (stomach) Condition: stable Disposition: PACU Description of Procedure: tmpatient's placed on the operative table in the supine position. She received general endotracheal tube anesthesia. Her abdomen was prepped and draped in usual fashion. The patient a place in dorsal 5 position. The skin incision sites were anesthetized 1% local Xylocaine. The skin the LAP-BAND port was incised and then using blunt and sharp dissection with cautery the LAP-BAND port was dissected free from the patient PEG tube was cut. Law port was withdrawn. the skin was then incised in the left periumbilical area. Using a 5 mm optical trocar under direct vision the perineal cavity is entered. Upon entering the pleural cavity the abdomen was insufflated after adequate insufflation a 5 mm trochars placed in the left epigastric position, right epigastric position, right lateral position and then the supraumbilical position. The super umbilical trocar was a 15 mm trocar. The left lateral lobe liver was retracted. The adhesions Law device were lysed with sharp dissection. And then the anterior gastric wall plication was taken down with sharp dissection. The LAP-BAND device was then freed and was cut and withdrawn from around stomach. The LAP-BAND device was withdrawn through the 15 mm trocar site. Next the greater curvature was visualized. Using the Harmonic scissors the greater curvature was dissected prostate 5 cm from ligament Treitz to the angle of Hiss. Once the greater curvature was mobilized. The 40-Israeli dilator was placed in the oropharynx by the KYLE and then positioned stomach. Using the powered echelon stapler sequential firings of the stapler was used to perform the sleeve gastrectomy. The specimen was then brought out through the 15 mm trocar site. The dilator was withdrawn. And then an orogastric tube was placed. The stomach was insufflated with 200 mL of methylene blue normal saline. There is no evidence of extravasation of methyl jayleen blue normal saline through the stapler. This point the abdomen was irrigated there is no bleeding seen. The fascia at the 15 mm trocar site was closed with a 0 Vicryl and Remigio Paz suture passer. The trochars withdrawn. Skin was then closed interrupted 3-0 Monocryl suture. Dermabond dressing applied. Patient top she will purchase sent to recovery room stable condition.
[2023-11-30] MEDS: droPERidol 5 MG/2 ML VIAL IVP ONE (12:20)
[2023-11-30] MEDS: HYDROmorphone 0.5 MG/0.5 ML SYRINGE IVP ONE (12:20)
[2023-11-30] MEDS: LACTATED RINGERS 1,000 ML IV SCH (15:04)
[2023-11-30] MEDS: ACETAMINOPHEN IV (For NPO) 1,000 MG in EMPTY BAG 1 BAG IVPB ONE (15:05)
[2023-11-30] MEDS: HYDROmorphone 1 MG/ML 1 ML SYRINGE IVP PRN (15:39)
[2023-11-30] MEDS: 0.9% NACL WITH KCL 20 MEQ/L 1,000 ML IV SCH (15:58)
[2023-11-30] MEDS: ALBUTEROL NEBULIZED 2.5 MG/3 ML INHALATION SCH (16:07)
[2023-11-30] MEDS: KETOROLAC 15 MG/ML 1 ML VIAL IVP SCH (17:38)
[2023-11-30] MEDS: ENOXAPARIN 40 MG/0.4 ML SYRINGE SQ SCH (22:13)
[2023-12-01 08:02] VITALS: BP 138/73; PULSE 80; RESP 16; TEMP 98.7
[2023-12-01 08:47] LABS: Basophils # (A) 0.07 X 10*3/uL (0.00-0.10); Basophils % (A) 0.5 %; Eosinophils # (A) 0.07 X 10*3/uL (0.04-0.35); Eosinophils % (A) 0.5 %; HCT 43.3 % (37.2-46.3); Lymphocytes # (A) 1.46 X 10*3/uL (0.90-5.00); Lymphocytes % (A) 9.6 %; MCH 29.8 pg (27.0-32.0); MCHC 32.3 g/dL (32.0-37.0); MCV 92.1 FL (80.0-97.0); Mean Platelet Volume 11.9 FL (9.5-12.2); Monocytes # (A) 1.02 X 10*3/uL (0.20-1.00); Monocytes % (A) 6.7 %; NRBC Per 100 WBC 0 X 10*3/uL (0.00-0.01); Neutrophils # (A) 12.55 X 10*3/uL (1.80-7.70); Neutrophils % (A) 82.3 %; Platelet Count 181 X 10*3/uL (140-440); RDW 12.9 % (11.5-14.5); WBC 15.23 X 10*3/uL (4.50-10.00)
[2023-12-01 09:32] LABS: Blood Urea Nitrogen 11.9 mg/dL (9.0-27.0); Calcium 8.8 mg/dL (8.7-10.3); Carbon Dioxide 20.9 mmol/L (21.6-31.8); Chloride 108 mmol/L (96-109); Magnesium 1.8 mg/dL (1.5-2.4); Phosphorus 2.5 mg/dL (2.4-5.1); Potassium 4.5 mmol/L (3.5-5.5); Sodium 141 mmol/L (135-145)
--- NOTE | 2023-12-01 10:09 | FL ---
SINGLE CONTRAST UPPER GI EXAMINATION: DATE: 12/01/2023 CLINICAL HISTORY: 58-year-old female postop bariatric surgery. Lap band removed and converted to sle dennis gastrectomy yesterday. TECHNIQUE: Single contrast exam performed with 40 mL thin barium as approved by Dr. Wu. The pa rhonda has an iodinated contrast allergy. Total fluoroscopy time: 3 minutes 34 seconds. Total images: None. Real-time fluoroscopy was provided to speech pathology. Total dose: 1921 mGycm2. FINDINGS: The patient swallowed oral contrast without difficulty or delay. Esophageal peristalsis and motility are within normal limits. There is prompt passage of contrast from esophagus into the stomach. Post surgical change of sleeve gastrectomy demonstrated. There is intermittent hesitation of contrast pas manas across the gastric sleeve with gradual filling of the distal stomach. During the interim, contra st also accumulates within the distal esophagus with episodes of intraesophageal reflux. Only at the end of the exam, with enough contrast in the distal esophagus to allow for successful transit into th e duodenum. No extravasation of contrast to suggest leak. No postsurgical free air seen. IMPRESSION: No evidence of leak status post sleeve gastrectomy following removal of lap band. There is relative m ild obstruction along the sleeve probably on the basis of postoperative edema.
[2023-12-01] MEDS: 1: MVI, ADULT NO.4 WITH VIT K 10 ML, THIAMINE 100 MG, FOLIC ACID 1 MG, POTASSIUM CHLORID IV SCH (10:24)
[2023-12-01] MEDS: PANTOPRAZOLE 40 MG/10 ML VIAL IV SCH (10:25)
--- NOTE | 2023-12-01 12:32 | P.DS ---
Providers Expected date of discharge: 12/01/23 Attending physician: Joel Wu Consults: 11/30/23 12:04 Consult Physician Routine Consulting Provider: Annette Faye Consult Reason/Comments: medical management Do you want consulting provider notified?: Yes Primary care physician: Carlos King Hospital Course: Discharge diagnosis 1. Morbid obesity 2. Dysphagia 3. Leukocytosis likely reactive from Decadron 4. Mild obstruction likely due to postoperative edema noted on upper GI Hospital course This is a 58-year-old female with a history of morbid obesity and dysphagia. She is status post laparoscopic removal of lap band system and laparoscopic sleeve gastrectomy. Patient is tolerating diet. Upper GI shows no leak. There is relative mild obstruction along the sleeve probably on the basis of postoperative edema. Her pain is controlled. She denies any difficulty urinating. She has been up and ambulating. She is afebrile. She is stable for discharge. Please refer to chart for any further details. Physician [employer] Analyst note has been reviewed by physician. Signing provider agrees with the documented findings, assessment, and plan of care. Patient Condition at Discharge: Stable Plan - Discharge Summary Discharge Rx Participant: No New Discharge Prescriptions: New Simethicone 40 mg/0.6 ml Drops [Mylicon Drops] 40 mg PO PCHS PRN #30 ml PRN Reason: Gas HYDROcodone/APAP 5-325MG [Gregory 5-325] 1 tab PO Q6HR PRN 2 Days #5 tab PRN Reason: Pain bisacodyL [Dulcolax] 5 mg PO DAILY PRN #10 tab PRN Reason: Constipation Omeprazole [PriLOSEC] 40 mg PO DAILY #30 cap Ondansetron Odt [Zofran Odt] 4 mg PO Q8HR PRN #9 tab PRN Reason: Nausea Continue Apixaban [Eliquis] 5 mg PO BID Folic Acid 0.8 mg PO DAILY Discharge Medication List Apixaban [Eliquis] 5 mg PO BID 11/24/23 [History] Folic Acid 0.8 mg PO DAILY 11/24/23 [History] HYDROcodone/APAP 5-325MG [Gregory 5-325] 1 tab PO Q6HR PRN 2 Days #5 tab 12/01/23 [Rx] Omeprazole [PriLOSEC] 40 mg PO DAILY #30 cap 12/01/23 [Rx] Ondansetron Odt [Zofran Odt] 4 mg PO Q8HR PRN #9 tab 12/01/23 [Rx] Simethicone 40 mg/0.6 ml Drops [Mylicon Drops] 40 mg PO PCHS PRN #30 ml 12/01/23 [Rx] bisacodyL [Dulcolax] 5 mg PO DAILY PRN #10 tab 12/01/23 [Rx] [place] [facility] [facility] [place] [place] [facility] [place] [facility] Week Activity/Diet/Wound Care/Special Instructions: No driving while taking Gregory No lifting over 10 pounds You may shower. No soaking or tub baths for 2 weeks Very light activity until you are reevaluated at your follow up appointment with your surgeon No straws or carbonated beverages Okay to resume Eliquis starting tomorrow 12/01/22 Discharge Disposition: HOME SELF-CARE
[2023-12-01 13:36] VITALS: BMI 40.8
--- NOTE | 2023-12-01 23:34 | CONS ---
CONSULTATION REASON FOR CONSULTATION: Advice regarding DVT and other medical issues, requested by surgery. HISTORY OF PRESENT ILLNESS: This is a 58-year-old woman with a past medical history of DVT, history of pulmonary embolism, underwent laparoscopic removal of the lap band and assess laparoscopic sleeve gastrectomy. There is no history of any fever. No chest pain or shortness of breath . PAST MEDICAL HISTORY: Reviewed, DVT, pulmonary embolism, rest of the chart and rest of the history is also reviewed. HOME MEDICATIONS: Reviewed include folic acid, dose and rest of medications reviewed. PHYSICAL EXAMINATION: VITAL SIGNS: Pulse is 80, blood pressure 138/70, respirations 16. HEENT: Conjunctivae normal. NECK: No jugular venous distention. CARDIOVASCULAR: S1, S2. RESPIRATIONS: Few scattered rhonchi. ABDOMEN: Soft, status post surgery. NERVOUS SYSTEM: No focal deficits. LABORATORY DATA: WBC 15.23. ASSESSMENT: 1. Status post laparoscopic removal of lap band system and laparoscopic sleeve gastrectomy. 2. Elevated WBC, possibly reactive. 3. History of DVT. 4. History of pulmonary embolism, history of DJD, history of bariatric surgery. 5. Cholecystectomy. RECOMMENDATIONS AND DISCUSSION: This 58-year-old woman presented after surgery. At this time, I recommended to continue current management, continue symptomatic treatment. Resume the home medications, DVT prophylaxis, incentive spirometry and closely follow with primary physician after discharge. Rest of the recommendations per surgery. MMODL / IJN: [id number] /
== END 2023-12-01 13:46 | disposition home or self-care (01) ==
LOC: OR 09:13 → 4SSUR 11:52 → OR 12-01 13:46
PROVIDERS: ATTEND Surgery
DX: E66.01 Morbid (severe) obesity due to excess calories (principal); K21.9 Gastro-esophageal reflux disease without esophagitis; K29.50 Unspecified chronic gastritis without bleeding; M19.90 Unspecified osteoarthritis, unspecified site; F17.210 Nicotine dependence, cigarettes, uncomplicated; Z68.41 Body mass index [BMI] 40.0-44.9, adult; Z79.01 Long term (current) use of anticoagulants; Z85.828 Personal history of other malignant neoplasm of skin; Z86.711 Personal history of pulmonary embolism; Z86.718 Personal history of other venous thrombosis and embolism; Z88.8 Allergy status to other drugs, medicaments and biological substances; Z90.49 Acquired absence of other specified parts of digestive tract; Z91.041 Radiographic dye allergy status; Z96.653 Presence of artificial knee joint, bilateral
CPT/HCPCS: 94640 ×2; 97162; 97165; 80051; 82310; 82565; 83735; 84100; 84520; 85025; 88307; 74240; 43775; J1100; J3411; J0690 ×2; J2405; J3480; J1650 ×2; J1170 ×2; J1885 ×2; C9113; J1790

== ENCOUNTER → 2023-12-03 | Outpatient (CLI) | payer BC ==
[2023-12-03 12:25] VITALS: BP 173/78; PULSE 93; RESP 14; TEMP 97.6; BMI 40.8
== END ==
LOC: BARWHC3 09:55
PROVIDERS: ATTEND Surgery
DX: E66.01 Morbid (severe) obesity due to excess calories (principal); Z91.041 Radiographic dye allergy status; Z91.013 Allergy to seafood; Z91.012 Allergy to eggs; Z87.891 Personal history of nicotine dependence; Z68.41 Body mass index [BMI] 40.0-44.9, adult
CPT/HCPCS: 99211

== ENCOUNTER → 2023-12-06 | Outpatient (CLI) | payer BC ==
[2023-12-06 10:14] VITALS: BMI 40.0
[2023-12-06 11:18] VITALS: BP 134/85; PULSE 81; RESP 16; TEMP 98.1
--- NOTE | 2024-02-03 12:49 | P.HPBAR ---
Bariatric H&P - History & Physicial H&P Date: 12/06/23 History & Physicial: Visit/CC: Post F/U Patient initial contact: Initial weight: 110.762 kg Initial weight in pounds: 244.19 Height: 5 ft 9 in Initial BMI: 36.0 Last weight: Current weight: 122.924 kg Current weight in pounds: 271.00 Current BMI: 40.0 [place] body weight (based on NIH guidelines): 65.771 kg Excess body weight loss: The patient is a 58 year-old F who presents for Bariatric Assessment. Patient presents today for bariatric follow-up. She has minimal complaints of gerd. She is doing well otherwise. Past Medical History Past Medical History: Cancer, Deep Vein Thrombosis (DVT), Osteoarthritis (OA), Pulmonary Embolus (PE) Additional Past Medical History / Comment(s): "Quite a few DVT's since age 22.",PEs 2017, varicose veins, hx bleeding ulcers, basal cell skin cancer. History of Any Multi-Drug Resistant Organisms: None Reported Past Surgical History: Bariatric Surgery, Cholecystectomy, Joint Replacement, Tonsillectomy Additional Past Surgical History / Comment(s): Lap band 2008-redone 06/04, EGD, raymundo knee replacement, lap band port replacement 03-09-22. lap band removal sleeve gastrectomy 11-30-23 Past Anesthesia/Blood Transfusion Reactions: Family History of Problems w/ Anesthesia Additional Past Anesthesia/Blood Transfusion Reaction / Comm: no hx blood transfusion, mother and sister-PONV Past Psychological History: No Psychological Hx Reported Smoking Status: Current every day smoker Past Alcohol Use History: None Reported Additional Past Alcohol Use History / Comment(s): smoking < 1/2 PPD, smoked approx. 30yrs, Past Drug Use History: None Reported - Past Family History Mother Family Medical History: Diabetes Mellitus Father Family Medical History: No Reported History Sister(s) Family Medical History: Cancer Additional Family Medical History / Comment(s): breast and brain cancer. Surgical - Exam Vital Signs Temp Pulse Resp BP 98.1 F 81 16 134/85 12/06/23 10:30 12/06/23 10:30 12/06/23 10:30 12/06/23 10:30 - General well developed, well nourished, no distress - Eyes PERRL - Abdomen Abdomen: soft, non tender Bariatric Assessment & Plan Plan: Patient's gerd is minimal and observe. She will follow-up in 4 weeks. Bariatric Checklist Checklist: Plan: Checklist: EGD: 1. Hiatal hernia: 2. H. Pylori: HgbA1c: Vitamin D: Smoking: Former smoker Primary care physician referral: dr Keagan Avalos ([facility]) Psychiatry clearance: Cardiology clearance: Sleep study: Diet journal: VTE risk score: VTE risk level: Rehab needs at discharge:
== END ==
LOC: BARWHC3 09:26
PROVIDERS: ATTEND Surgery
DX: E66.01 Morbid (severe) obesity due to excess calories (principal); K21.9 Gastro-esophageal reflux disease without esophagitis; F17.210 Nicotine dependence, cigarettes, uncomplicated; Z71.3 Dietary counseling and surveillance; Z68.41 Body mass index [BMI] 40.0-44.9, adult; Z98.84 Bariatric surgery status; Z90.3 Acquired absence of stomach [part of]; Z91.041 Radiographic dye allergy status; Z91.013 Allergy to seafood; Z91.012 Allergy to eggs; Z88.8 Allergy status to other drugs, medicaments and biological substances
CPT/HCPCS: 97802; 99211

== ENCOUNTER → 2023-12-20 | Outpatient (CLI) | payer BC ==
[2023-12-20 13:30] VITALS: BP 139/80; PULSE 78; RESP 16; TEMP 97.6; BMI 39.7
--- NOTE | 2023-12-21 09:37 | P.HPBAR ---
Bariatric H&P - History & Physicial H&P Date: 12/20/23 History & Physicial: Visit/CC: follow up 3 weeks lap removal/ gastric sleeve Patient initial contact: Initial weight: 110.762 kg Initial weight in pounds: 244.19 Height: 5 ft 9 in Initial BMI: 36.0 Last weight: Current weight: 122.016 kg Current weight in pounds: 269.00 Current BMI: 39.7 [place] body weight (based on NIH guidelines): 65.771 kg Excess body weight loss: The patient is a 58 year-old F who presents for Bariatric Assessment.patient presents today for bariatric follow-up. Patient is status post removal LAP-BAND conversion to gastric sleeve. Patient lost another 8 pounds since her last visit. She's had minimal complaints of GERD. Past Medical History Past Medical History: Cancer, Deep Vein Thrombosis (DVT), Osteoarthritis (OA), Pulmonary Embolus (PE) Additional Past Medical History / Comment(s): "Quite a few DVT's since age 22.",PEs 2016, varicose veins, hx bleeding ulcers, basal cell skin cancer. History of Any Multi-Drug Resistant Organisms: None Reported Past Surgical History: Bariatric Surgery, Cholecystectomy, Joint Replacement, Tonsillectomy Additional Past Surgical History / Comment(s): Lap band 2008-redone 06/04, EGD, raymundo knee replacement, lap band port replacement 03-09-22. lap band removal sleeve gastrectomy 11-30-23 Past Anesthesia/Blood Transfusion Reactions: Family History of Problems w/ Anesthesia Additional Past Anesthesia/Blood Transfusion Reaction / Comm: no hx blood transfusion, mother and sister-PONV Past Psychological History: No Psychological Hx Reported Smoking Status: Former smoker Past Alcohol Use History: None Reported Additional Past Alcohol Use History / Comment(s): smoked approx. 30yrs, Past Drug Use History: None Reported - Past Family History Mother Family Medical History: Diabetes Mellitus Father Family Medical History: No Reported History Sister(s) Family Medical History: Cancer Additional Family Medical History / Comment(s): breast and brain cancer. Surgical - Exam Vital Signs Temp Pulse Resp BP 97.6 F 78 16 139/80 12/20/23 08:35 12/20/23 08:35 12/20/23 08:35 12/20/23 08:35 - General well developed, well nourished, no distress - Eyes PERRL - ENT normal pinna - Neck no masses - Respiratory normal expansion - Cardiovascular Rhythm: regular - Abdomen Abdomen: soft, non tender Bariatric Assessment & Plan Plan: patient's GERD is minimal will be observed. She'll follow-up in 4 weeks. Bariatric Checklist Checklist: Plan: Checklist: EGD: 1. Hiatal hernia: 2. H. Pylori: HgbA1c: Vitamin D: Smoking: Former smoker Primary care physician referral: dr Keagan Avalos ([facility]) Psychiatry clearance: Cardiology clearance: Sleep study: Diet journal: VTE risk score: VTE risk level: Rehab needs at discharge:
== END ==
LOC: BARWHC3 08:29
PROVIDERS: ATTEND Surgery
DX: K21.9 Gastro-esophageal reflux disease without esophagitis (principal); Z87.891 Personal history of nicotine dependence; Z91.041 Radiographic dye allergy status; Z91.013 Allergy to seafood
CPT/HCPCS: 99211

== ENCOUNTER → 2024-01-17 | Outpatient (CLI) | payer BC ==
[2024-01-17 08:42] VITALS: BMI 38.7
[2024-01-17 09:10] VITALS: BP 156/86; PULSE 67; RESP 16; TEMP 97.7
--- NOTE | 2024-01-17 10:19 | P.HPBAR ---
Bariatric H&P - History & Physicial H&P Date: 01/17/24 History & Physicial: Visit/CC: f/u gastric sleeve Patient initial contact: Initial weight: 110.762 kg Initial weight in pounds: 244.19 Height: 5 ft 9 in Initial BMI: 36.0 Last weight: Current weight: 119.096 kg Current weight in pounds: 262.56 Current BMI: 38.7 [place] body weight (based on NIH guidelines): 65.771 kg Excess body weight loss: The patient is a 58 year-old F who presents for Bariatric Assessment.she presents today for bariatric follow-up. She has minimal complaints of GERD. She has lost another 7 pounds since her last visit. Past Medical History Past Medical History: Cancer, Deep Vein Thrombosis (DVT), Osteoarthritis (OA), Pulmonary Embolus (PE) Additional Past Medical History / Comment(s): "Quite a few DVT's since age 22.",PEs 2017, varicose veins, hx bleeding ulcers, basal cell skin cancer. History of Any Multi-Drug Resistant Organisms: None Reported Past Surgical History: Bariatric Surgery, Cholecystectomy, Joint Replacement, Tonsillectomy Additional Past Surgical History / Comment(s): Lap band 2008-redone 06/04, EGD, raymundo knee replacement, lap band port replacement 03-09-22. lap band removal sleeve gastrectomy 11-30-23 Past Anesthesia/Blood Transfusion Reactions: Family History of Problems w/ Anesthesia Additional Past Anesthesia/Blood Transfusion Reaction / Comm: no hx blood transfusion, mother and sister-PONV Past Psychological History: No Psychological Hx Reported Smoking Status: Former smoker Past Alcohol Use History: None Reported Additional Past Alcohol Use History / Comment(s): smoked approx. 30yrs, Past Drug Use History: None Reported - Past Family History Mother Family Medical History: Diabetes Mellitus Father Family Medical History: No Reported History Sister(s) Family Medical History: Cancer Additional Family Medical History / Comment(s): breast and brain cancer. Surgical - Exam Vital Signs Temp Pulse Resp BP Pulse Ox 97.7 F 67 16 156/86 98 01/17/24 08:28 01/17/24 08:28 01/17/24 08:28 01/17/24 08:28 01/17/24 08:28 - General well developed, well nourished, no distress - Eyes PERRL - ENT normal pinna - Neck no masses - Respiratory normal expansion - Cardiovascular Rhythm: regular - Abdomen Abdomen: soft, non tender Bariatric Assessment & Plan Plan: status post sleeve gastrectomy. Patient's GERD is minimal and will be observed. She'll follow-up in 4 weeks. Bariatric Checklist Checklist: Plan: Checklist: EGD: 1. Hiatal hernia: 2. H. Pylori: HgbA1c: Vitamin D: Smoking: Former smoker Primary care physician referral: dr Keagan Avalos ([facility]) Psychiatry clearance: Cardiology clearance: Sleep study: Diet journal: VTE risk score: VTE risk level: Rehab needs at discharge:
== END ==
LOC: BARWHC3 08:23
PROVIDERS: ATTEND Surgery
DX: E66.01 Morbid (severe) obesity due to excess calories (principal); K21.9 Gastro-esophageal reflux disease without esophagitis; Z71.3 Dietary counseling and surveillance; Z90.3 Acquired absence of stomach [part of]; Z98.84 Bariatric surgery status; Z87.891 Personal history of nicotine dependence; Z68.38 Body mass index [BMI] 38.0-38.9, adult; Z91.041 Radiographic dye allergy status; Z91.013 Allergy to seafood; Z91.012 Allergy to eggs
CPT/HCPCS: 97803; 99211

== ENCOUNTER → 2024-03-27 | Outpatient (CLI) | payer BC ==
[2024-03-27 08:45] VITALS: BP 153/81; PULSE 81; RESP 16; TEMP 97.8; BMI 35.7
--- NOTE | 2024-03-27 13:41 | P.HPBAR ---
Bariatric H&P - History & Physicial H&P Date: 03/27/24 History & Physicial: Visit/CC: f/u sleeve Patient initial contact: Initial weight: 110.762 kg Initial weight in pounds: 244.19 Height: 5 ft 9 in Initial BMI: 36.0 Last weight: Current weight: 109.769 kg Current weight in pounds: 242.00 Current BMI: 35.7 [place] body weight (based on NIH guidelines): 65.771 kg Excess body weight loss: 2.2% The patient is a 58 year-old F who presents for Bariatric Assessment. Presents today for bariatric assessment. She is lost 20 pounds her last visit. S had mild gerd. Past Medical History Past Medical History: Cancer, Deep Vein Thrombosis (DVT), Osteoarthritis (OA), Pulmonary Embolus (PE) Additional Past Medical History / Comment(s): "Quite a few DVT's since age 22.",PEs 2016, varicose veins, hx bleeding ulcers, basal cell skin cancer. History of Any Multi-Drug Resistant Organisms: None Reported Past Surgical History: Bariatric Surgery, Cholecystectomy, Joint Replacement, Tonsillectomy Additional Past Surgical History / Comment(s): Lap band 2008-redone 06/04, EGD, raymundo knee replacement, lap band port replacement 03-09-22. lap band removal sleeve gastrectomy 11-30-23, skin cancer lesions removed rt shoulder and back Past Anesthesia/Blood Transfusion Reactions: Family History of Problems w/ Anesthesia Additional Past Anesthesia/Blood Transfusion Reaction / Comm: no hx blood transfusion, mother and sister-PONV Past Psychological History: No Psychological Hx Reported Smoking Status: Current some day smoker Past Alcohol Use History: None Reported Additional Past Alcohol Use History / Comment(s): smoked approx. 30yrs, Past Drug Use History: None Reported - Past Family History Mother Family Medical History: Diabetes Mellitus Father Family Medical History: No Reported History Sister(s) Family Medical History: Cancer Additional Family Medical History / Comment(s): breast and brain cancer. Surgical - Exam Vital Signs Temp Pulse Resp BP 97.8 F 81 16 153/81 03/27/24 08:39 03/27/24 08:39 03/27/24 08:39 03/27/24 08:39 - General well developed, well nourished, no distress - Eyes PERRL - ENT normal pinna - Neck no masses - Respiratory normal expansion - Abdomen Abdomen: soft, non tender Bariatric Assessment & Plan Plan: Patient is doing well status post sleeve gastric. Her GERD is minimal will be observed. Bariatric Checklist Checklist: Plan: Checklist: EGD: 1. Hiatal hernia: 2. H. Pylori: HgbA1c: Vitamin D: Smoking: Former smoker Primary care physician referral: dr Keagan Avalos ([facility]) Psychiatry clearance: Cardiology clearance: Sleep study: Diet journal: VTE risk score: VTE risk level: Rehab needs at discharge:
== END ==
LOC: BARWHC3 08:28
PROVIDERS: ATTEND Surgery
CPT/HCPCS: 99211